=== PATIENT | female | born 1950 | race Caucasian/White ===

== ENCOUNTER → 2016-06-06 | Outpatient (CLI) | payer OTHER ==
[~2016-06-06] MED LIST: ACT30 PO; ALPR-411 PO; ATEN-171 PO; GEMF600T3 PO; GLC500 PO; GLCSR10 PO; SERT-234 PO
--- NOTE | 2016-06-06 15:36 | MAMMOGRAPHY REPORT ---
BILATERAL DIGITAL SCREENING MAMMOGRAM TOMOSYNTHESIS WITH CAD: 06/06/2016 CLINICAL HISTORY: Routine screening. Patient has no complaints. TECHNIQUE: Breast tomosynthesis in addition to standard 2D mammography was performed. Current study was also evaluated with a Computer Aided Detection (CAD) system. COMPARISON: Comparison is made to exams dated: 11/22/2014 mammogram, 03/16/2012 mammogram, 05/24/2013 mammogram, 03/11/2011 mammogram, and 03/05/2010 mammogram - [facility]. BREAST COMPOSITION: There are scattered areas of fibroglandular density in both breasts. FINDINGS: No suspicious masses, calcifications, or areas of architectural distortion are noted in e ither breast. There has been no significant interval change compared to prior exams. IMPRESSION: ACR BI-RADS CATEGORY 1: NEGATIVE There is no mammographic evidence of malignancy. A 1 year screening mammogram is recommended. The p atient will receive written notification of the results. Approximately 10% of breast cancers are not detected with mammography. A negative mammographic repor t should not delay biopsy if a clinically suggestive mass is present. Serena Tomas M.D. /:06/06/2016 13:39:36 [employer] Teacher: Danny JAMA(Sanjana)([place]), [facility] letter sent: Normal 1/2 BI-RADS Code: ACR BI-RADS Category 1: Negative
== END | disposition home or self-care (01) ==
LOC: C.MAMM 09:03
PROVIDERS: ATTEND Family Medicine
DX: Z12.31 Encounter for screening mammogram for malignant neoplasm of breast (principal)

== ENCOUNTER 2025-03-08 20:01 | Inpatient (IN) ==
[2025-03-08 20:35] LABS: Hematocrit (blood only) 28.3 % (37.0-47.0); Hemoglobin 9.6 g/dl (12.0-16.0); Immature Granulocytes # (auto) 0.08 K/uL (0.01-0.20); Immature Granulocytes % (auto) 0.7 %; Mean Corpuscular Hemoglobin 32.7 pg (25.0-34.0); Mean Corpuscular Volume 96.3 fL (80.0-100.0); Platelet Count 233 K/uL (130-400); RDW Standard Deviation 53.1 fL (36.4-46.3); Red Blood Count 2.94 M/uL (4.20-5.40); White Blood Count 11.77 K/ul (4.8-10.8)
[2025-03-08] MEDS: SODIUM CHLORIDE 0.9% 1,000 ML IV SCH (20:54)
[2025-03-08 21:01] LABS: Alanine Aminotransferase 8.0 U/L (7-52); Albumin Globulin Ratio 1.1 (0.9-2); Albumin Level 3.4 gm/dl (3.4-5.0); Alkaline Phosphatase 64.0 U/L (34-104); Anion Gap 11.0 (3-11); Bilirubin,Total 0.7 mg/dl (0.2-1.0); Blood Urea Nitrogen 30.0 mg/dl (6-23); Calcium 14.9 mg/dl (8.6-10.3); Carbon Dioxide 24.0 mmol/L (21-32); Chloride 103.0 mmol/L (98-107); Creatine Kinase 718.0 U/L (26-192); Creatinine Clr Calc Pharmacy 30.3 ml/min; Globulin 3.1 gm/dl (2.5-4.0); Glucose 183.0 mg/dl (70-99(Fasting)); Lipase 25.0 U/L (11-82); Magnesium 0.6 mg/dl (1.7-2.4); Potassium 4.1 mmol/L (3.5-5.1); Sodium 138.0 mmol/L (136-145); Total Protein 6.5 gm/dl (6.0-8.3)
[2025-03-08 21:05] LABS: INR 1.1 (0.9-1.1); Prothrombin Time 11.7 Seconds (9.0-12.0)
[2025-03-08 21:10] LABS: Thyroid Stimulating Hormone 3.834 uIu/ml (0.300-4.500)
[2025-03-08] MEDS: MAGNESIUM SULFATE / D5W 1 GM/100 ML BAG IV SCH (21:11)
--- NOTE | 2025-03-08 21:33 | CT Scan Report ---
Exam(s): CT HEAD Without Contrast EXAM: CT Head Without Intravenous Contrast CLINICAL HISTORY: Reason for exam: trauma. TECHNIQUE: Axial computed tomography images of the head/brain without intravenous contrast. CTDI is 35.65 mGy and DLP is 624.41 mGy-cm. Automated exposure control was utilized for the study. A dose lowering technique was utilized adhering to the principles of ALARA. COMPARISON: No relevant prior studies available. FINDINGS: Brain: Mild ischemic microangiopathy. Age-appropriate cerebral volume loss. No hemorrhage. Ventricles: Unremarkable. No ventriculomegaly. Bones/joints: Unremarkable. No acute fracture. Soft tissues: Unremarkable. Sinuses: Unremarkable as visualized. No acute sinusitis. Mastoid air cells: Unremarkable as visualized. No mastoid effusion. IMPRESSION: No acute findings in the head/brain. Electronically signed by: Fabien Mckeon MD 03/08/25 21:32 PM
--- NOTE | 2025-03-08 22:43 | CT Scan Report ---
Exam(s): CT CHEST Without Contrast EXAM: CT Chest Without Intravenous Contrast CLINICAL HISTORY: Reason for exam: trauma. TECHNIQUE: Axial computed tomography images of the chest without intravenous contrast. CTDI is 23.21 mGy and DLP is 444 mGy-cm. Automated exposure control was utilized for the study. A dose lowering technique was utilized adhering to the principles of ALARA. COMPARISON: No relevant prior studies available. FINDINGS: Lungs: Mild bibasilar dependent atelectasis. No mass. Pleural space: See below. Heart: Coronary artery calcifications. No cardiomegaly. No significant pericardial effusion. Mediastinum: Right paratracheal mass extending inferiorly into the right hilum and into the mediastinum across the esequiel measuring 6.5 x 7x 10 cm. Trace right and tiny left bilateral pleural effusions. Bones/joints: Unremarkable. No acute fracture. Soft tissues: Unremarkable. Vasculature: See above. Lymph nodes: Unremarkable. No enlarged lymph nodes. IMPRESSION: Right paratracheal mass extending inferiorly into the right hilum and into the mediastinum across the esequiel 6.5 x 10 cm findings are concerning for neoplasm. Recommend dedicated CT or PET scan of the chest for further evaluation. Electronically signed by: Fabien Mckeon MD 03/08/25 22:42 PM
--- NOTE | 2025-03-08 22:54 | CT Scan Report ---
Exam(s): CT ABDOMEN + PELVIS Without Contrast EXAM: CT Abdomen and Pelvis Without Intravenous Contrast CLINICAL HISTORY: Reason for exam: trauma. TECHNIQUE: Axial computed tomography images of the abdomen and pelvis without intravenous contrast. CTDI is 13 mGy and DLP is 901 mGy-cm. Automated exposure control was utilized for the study. A dose lowering technique was utilized adhering to the principles of ALARA. COMPARISON: No relevant prior studies available. FINDINGS: Lung bases: 9 mm right lower lobe pulmonary nodule image 44 series 12. Fleischner Society Guidelines recommend chest CT evaluation. No consolidation. Pleural space: Trace right pleural effusion. Heart: Small pericardial effusion. Cardiomegaly. Aortic and mitral valve calcifications. ABDOMEN: Liver: Unremarkable. Gallbladder and bile ducts: Unremarkable. No calcified stones. No ductal dilation. Pancreas: Unremarkable. No ductal dilation. Spleen: Unremarkable. No splenomegaly. Adrenals: Unremarkable. No mass. Kidneys and ureters: Unremarkable. No obstructing stones. No hydronephrosis. Stomach and bowel: Unremarkable. No obstruction. No mucosal thickening. PELVIS: Appendix: No findings to suggest acute appendicitis. Bladder: Unremarkable. No stones. Reproductive: Unremarkable as visualized. ABDOMEN and PELVIS: Intraperitoneal space: Unremarkable. No free air. No significant fluid collection. Bones/joints: No acute fracture. No dislocation. Soft tissues: Unremarkable. Vasculature: Unremarkable. No abdominal aortic aneurysm. Lymph nodes: Unremarkable. No enlarged lymph nodes. IMPRESSION: 1. Small pericardial effusion. 2. Trace right pleural effusion. 3. 9 mm right lower lobe pulmonary nodule. Dedicated chest CT recommended for further evaluation. Electronically signed by: Fabien Mckeon MD 03/08/25 22:53 PM
--- NOTE | 2025-03-08 22:57 | CT Scan Report ---
Exam(s): CT C SPINE EXAM: CT Cervical Spine Without Intravenous Contrast CLINICAL HISTORY: Reason for exam: trauma. TECHNIQUE: Axial computed tomography images of the cervical spine without intravenous contrast. Automated exposure control was utilized for the study. A dose lowering technique was utilized adhering to the principles of ALARA. COMPARISON: No relevant prior studies available. FINDINGS: Vertebrae: Unremarkable. No acute fracture. Discs/spinal canal/neural foramina: Multilevel cervical spondylopathy resulting in varying degrees of canal and foraminal stenosis. No acute fractures or dislocations. Soft tissues: Unremarkable. Mediastinum: Right-sided paratracheal mass incompletely evaluated on this exam. IMPRESSION: No acute findings in the cervical spine. Electronically signed by: Fabien Mckeon MD 03/08/25 22:56 PM
--- NOTE | 2025-03-08 23:23 | Emergency Department Note ---
Impression & Plan SEB (acute kidney injury), Rhabdomyolysis, Fall, Hypomagnesemia, Hypoxia, Elevated troponin, Mediastinal mass, Hypercalcemia ED Provider Note ED Provider Note NAME: SOCORRO HERNANDEZ AGE:74 SEX: Female : 1950 ARRIVES VIA: EMS INFORMANT: Patient ED PROVIDER(s): Shanae Hill DO CHIEF COMPLAINT: Fall, weakness HPI: This is a 74-year-old female presents emergency department via EMS after concern for a fall earlier today. Patient lives at home with her son. She states around 830 this morning she went to the kitchen to get a drink. She states she dropped her bottle of Gatorade and bent over to pick it up to put it back in the fridge rater. She states when she was trying to stand back up she became off balance and fell backwards. She does not believe she struck her head and states she did not pass out. She states she tried to get up but felt too weak and had pain in her knees. She does note she has had pain in her knees though for several days. She states no recent illness including fevers or chills. No recent change in bowel or bladder function. She feels she has been staying well-hydrated and drinking plenty of water. She denies any change in medications. Patient states she was using her walker when the fall occurred. No use of antiplatelet or anticoagulation medications. PAST MEDICAL HISTORY:See Below PAST SURGICAL HISTORY:See Below FAMILY HISTORY:See Below SOCIAL HISTORY:See Below HOME MEDICATIONS:See Below ALLERGIES:See Below VITALS:See Below PHYSICAL EXAMINATION: GENERAL: alert, well appearing, well nourished, no distress, non-toxic HEAD: nc/at EYE EXAM: normal conjunctiva, PERRL and EOM's grossly intact OROPHARYNX: no exudate, no erythema, lips, buccal mucosa, and tongue normal and mucous membranes are moist NECK: supple, no nuchal rigidity, no adenopathy, non-tender LUNGS: Clear to auscultation. Normal chest wall mechanics, no w/r/r HEART: no murmurs, S1 normal and S2 normal ABDOMEN: abdomen soft, non-tender, normo-active bowel sounds, no masses, no rebound or guarding. BACK: Back is symmetrical on inspection and there is no deformity, no midline tenderness, no CVA tenderness. SKIN: no rashes, petechiae, orbruising UPPER EXTREMITIES: upper extremities are grossly normal. FROM, nml pulses b/l. No evidence of trauma or deformity. LOWER EXTREMITIES: No pitting edema. FROM, nml pulses b/l. No evidence of trauma or deformity. NEURO EXAM: Normal sensorium, cranial nerves II-XII grossly intact, normal speech, no facial droop,nogross weakness of arms, no gross weakness of legs. Gross sensation intact. No ataxia. Vital Signs: reviewed and remarkable Differential Diagnosis: CVA, ICH, dehydration, electrolyte, pneumonia, UTI, viral syndrome, deconditioning, malnutrition, medication ADR, ACS, dysrhythmia, dissection, as well as others were considered MEDICAL DECISION MAKING: This is a 74-year-old female who presents to the emergency department via EMS after being found down by son when he arrived home. Patient reported she had fallen around 8:30 in the morning and was too weak to get up. Patient had a provide history here and is seen to be oriented. She was afebrile and hemodynamically stable. She was noted to be mildly hypoxic but denied any sense of feeling short of breath. She was started on oxygen supplementation at 2 L/min. Labs drawn and sent, IV established, EKG performed at bedside and interpreted by me, she was monitored on telemetry. Patient sent for CT imaging. A [id number] BMP revealed a creatinine of 2 and has patient denied any history of kidney problems, scans were changed to noncontrast as a precaution. Due to concern for evolving rhabdomyolysis given the length of time patient had been lying on the floor following her fall, she was started on IV fluid hydration. Patient noted to have EKG abnormalities however denied any chest pain or difficulty breathing and I suspect this may be related to underlying electrolyte abnormalities. Patient noted to have elevated creatinine, I was eventually able to review labs from earlier this year with assistance from case management which did show some degree of chronic kidney disease. I suspect this is acute on chronic given dehydration and rhabdomyolysis. Patient was noted to have elevation of her CK. She was noted to have significant hypomagnesemia and was started on magnesium repletion. Patient also noted to have hypercalcemia. CT did not reveal any acute traumatic injury however a mediastinal mass was noted. Upon discussing this with the patient and family bedside they state she has no prior history of malignancy. I suspect the hypercalcemia is related to undiagnosed malignancy. Patient noted to have mildly elevated troponin however I suspect this is more likely secondary to SEB and rhabdomyolysis additionally. Repeat EKG without any evolving changes, repeat troponin mildly elevated compared to the first. Patient and family updated several times on results and need for further inpatient evaluation and likely biopsy of the newly discovered mass. Case discussed with the hospitalist team for additional evaluation and management. At this time have low suspicion for any additional occult traumatic injury. Consultation(s): 0008: Discussed with Dr. Mireles, [facility] hospitalist team, for additional evaluation and management. ER Treatment Provided: See below Diagnostics Interpreted By Me: -ECG: Sinus tachycardia at 101, leftward axis, left bundle branch block, ST elevation noted; changes are new compared to December 11, 2022 -Cardiac Monitoring: An order was placed for continuous cardiac monitoring. The monitor shows a rate of 102 with sinus tachycardia rhythm. -Laboratory studies: As stated above and show below. -Imaging studies: ct head: no ich Triage Nursing Note Reviewed Prior/Outside Records Reviewed -PCP note from 02/17/2025 reviewed. Echo from 11/23/2024 reviewed showing LVEF of 55 to 59%, moderate concentric LVH, moderate aortic valve calcification, severe aortic valve stenosis, moderate to severe aortic regurgitation, outpatient labs from 12/06/2024 showed BUNs/creatinine of 28 and 1.6, prior glucose of 178, hemoglobin A1c of 7.7, and magnesium of 1.3 Critical care: Critical care of 56 min performed to assess and manage high likelihood of life-threatening electrolyte abnormalities, involving labs and imaging performed with assessment to evaluate fall and weakness diagnosis with frequent reassessment. This time includes bedside time, treatment discussions with patient/family/consultants, documentation time and excludes procedure time. Past Med/Surg History Problem List (Updated 03/09/25 @ 14:14 by Shanae Hill, DO) Hypercalcemia (Acute) Mediastinal mass (Acute) Acute kidney injury superimposed on CKD Hypercalcemia Elevated troponin (Acute) Hypoxia (Acute) Hypomagnesemia (Acute) Fall (Acute) Rhabdomyolysis (Acute) SEB (acute kidney injury) (Acute) Family History Father Cancer Social History Smoking Status: Never smoker Hx Alcohol Use: No Hx Substance Use: No Preferred Language: Jordanian Home Paraprofessional Required: No Beliefs That Will Affect Care: None Current Living Situation: Family Current Living Situation Comment: lives with son Other Information That Helps Us Care for You: No Feels Safe at Home: Yes Safety Concerns: Feels Safe At This Time Assistive Devices: Glasses, Oxygen - Continuous and Walker Allergies Allergies Allergy/AdvReac Type Severity Reaction Status Date / Time No Known Allergies Allergy Unverified 02/10/10 13:10 Home Meds Home Medications Medication Instructions Recorded Confirmed allopurinol 300 mg tablet mg DAILY 03/09/25 calcium 600 mg (as tab PO BID 03/09/25 carbonate)-vitamin D3 10 mcg (400 unit) tablet (Calcium 600 + D(3)) citalopram 20 mg tablet 20 mg DAILY 03/09/25 03/09/25 clonazepam 0.5 mg tablet 0.5 mg 03/09/25 omeprazole 20 mg capsule,delayed mg BID 03/09/25 release semaglutide 2 mg/dose (8 mg/3 mL) mg subcut WK 03/09/25 subcutaneous pen injector (Ozempic) trazodone 50 mg tablet 50 mg HS PRN Sleep 03/09/25 03/09/25 Results & Data (ED) Vital Signs Vital Signs - 24 hr 03/08/25 20:14 03/08/25 21:00 03/08/25 21:32 Temperature 36.7 C Temperature Source Oral Pulse Rate 97 H 97 H Pulse Rate [Apical] 99 H Pulse Rhythm Regular Pulse Rhythm [Apical] Regular Pulse Strength Normal Pulse Strength [Apical] Normal Respiratory Rate 18 18 Respiratory Effort / Characteristics Non-Labored Non-Labored Spontaneous Respiratory Depth Normal Normal Respiratory Pattern Regular Regular Blood Pressure 138/62 Blood Pressure [Right Arm] 97/55 L Blood Pressure Mean 87 Blood Pressure Mean [Right Arm] 69 Blood Pressure Position Lying Blood Pressure Position [Right Arm] Lying Pulse Oximetry 98 96 Oxygen Delivery Method Nasal Cannula Nasal Cannula Oxygen Flow Rate 2 2 Sepsis Recent Fever Within 48 Hours No Sepsis New/Unexplained Change in Mental Status No Sepsis Action Taken by Nursing No Action Required 03/08/25 22:00 03/08/25 23:00 03/09/25 00:00 Temperature Temperature Source Pulse Rate Pulse Rate [Apical] 96 H 96 H 95 H Pulse Rhythm Pulse Rhythm [Apical] Regular Regular Regular Pulse Strength Pulse Strength [Apical] Normal Normal Normal Respiratory Rate 20 18 20 Respiratory Effort / Characteristics Non-Labored Spontaneous Non-Labored Spontaneous Non-Labored Spontaneous Respiratory Depth Normal Normal Normal Respiratory Pattern Regular Regular Regular Blood Pressure Blood Pressure [Right Arm] 104/53 L 111/53 L 108/51 L Blood Pressure Mean Blood Pressure Mean [Right Arm] 70 72 70 Blood Pressure Position Blood Pressure Position [Right Arm] Lying Lying Lying Pulse Oximetry 95 96 90 Oxygen Delivery Method Nasal Cannula Nasal Cannula Nasal Cannula Oxygen Flow Rate 2 2 2 Sepsis Recent Fever Within 48 Hours Sepsis New/Unexplained Change in Mental Status Sepsis Action Taken by Nursing 03/09/25 01:00 Temperature Temperature Source Pulse Rate Pulse Rate [Apical] 94 H Pulse Rhythm Pulse Rhythm [Apical] Regular Pulse Strength Pulse Strength [Apical] Normal Respiratory Rate 20 Respiratory Effort / Characteristics Non-Labored Spontaneous Respiratory Depth Normal Respiratory Pattern Regular Blood Pressure Blood Pressure [Right Arm] 111/53 L Blood Pressure Mean Blood Pressure Mean [Right Arm] 72 Blood Pressure Position Blood Pressure Position [Right Arm] Lying Pulse Oximetry 90 Oxygen Delivery Method Nasal Cannula Oxygen Flow Rate 4 Sepsis Recent Fever Within 48 Hours Sepsis New/Unexplained Change in Mental Status Sepsis Action Taken by Nursing Laboratory Data 03/09/25 07:51 03/09/25 07:51 Lab Results 03/08/25 03/08/25 03/09/25 Range/Units 20:20 20:26 00:43 WBC 11.77 H (4.8-10.8) K/ul RBC 2.94 L (4.20-5.40) M/uL Hgb 9.6 L 8.6 L (12.0-16.0) g/dl POC Hgb 10.5 L (12.0-16.0) g/dl Hct 28.3 L 26.9 L (37.0-47.0) % POC Hct 31 L (37-47) % MCV 96.3 (80.0-100.0) fL MCH 32.7 (25.0-34.0) pg MCHC 33.9 (32.0-36.0) g/dL RDW Std Deviation 53.1 H (36.4-46.3) fL RDW Coeff of Lupe 15.2 H (11.5-14.5) % Plt Count 233 (130-400) K/uL MPV 12.6 H (9.4-12.4) fL Immature Gran % (Auto) 0.7 % Neut % (Auto) 82.3 % Lymph % (Auto) 8.6 % Titus % (Auto) 8.0 % Eos % (Auto) 0.1 % Baso % (Auto) 0.3 % Reticulocyte % (Auto) 2.28 H (0.50-2.00) % Neut # (Auto) 9.70 H (1.40-6.50) K/uL Lymph # (Auto) 1.01 L (1.20-3.40) K/uL Titus # (Auto) 0.94 H (0.11-0.59) K/uL Eos # (Auto) 0.01 (0.00-0.50) K/uL Baso # (Auto) 0.03 (0.00-0.20) K/uL Reticulocyte # 0.060 (0.020-0.100) 10^6/uL Immature Gran # (Auto) 0.08 (0.01-0.20) K/uL PT 11.7 (9.0-12.0) Seconds INR 1.1 (0.9-1.1) POC Sodium 137 (135-144) mmol/L Sodium 138 (136-145) mmol/L POC Potassium 4.0 (3.3-5.0) mmol/L Potassium 4.1 (3.5-5.1) mmol/L POC Chloride 103 (101-112) mmol/L Chloride 103 (98-107) mmol/L Carbon Dioxide 24 (21-32) mmol/L POC Total CO2 24 (24-31) mmol/L Anion Gap 11 (3-11) POC Anion Gap 15.0 L (16-25) mmol/L POC BUN 27 H (7-18) mg/dl BUN 30 H (6-23) mg/dl Creatinine 1.86 H (0.6-1.2) mg/dl POC Creatinine 2.0 H (0.6-1.3) mg/dl Est Cr Clr Drug Dosing 30.3 ml/min eGFR 28.07 BUN/Creatinine Ratio 16.1 (10-20) Glucose 183 H (70-99(Fasting)) mg/dl POC Glucose (other) 172 H (70-99) mg/dl Calcium 14.9 H* 14.0 H* (8.6-10.3) mg/dl POC Ioniz Calcium Rbe 1.87 H* (1.12-1.32) mmol/l Phosphorus 1.6 L (2.5-4.9) mg/dl Magnesium 0.6 L* (1.7-2.4) mg/dl Iron 18 L (35-150) mcg/dl Transferrin 203 (200-360) mg/dl Ferritin 110.2 (8-388) ng/ml Total Bilirubin 0.7 (0.2-1.0) mg/dl AST 27 (13-39) U/L ALT 8 (7-52) U/L Alkaline Phosphatase 64 (34-104) U/L Total Creatine Kinase 718 H (26-192) U/L Troponin I High Sens 51.6 H* 73.1 H* D (0-14) pg/ml Total Protein 6.5 (6.0-8.3) gm/dl Albumin 3.4 (3.4-5.0) gm/dl Globulin 3.1 (2.5-4.0) gm/dl Albumin/Globulin Ratio 1.1 (0.9-2) Lipase 25 (11-82) U/L Vitamin B12 179 L (180-914) pg/ml Folate > 22.30 (>5.38) ng/ml TSH 3.834 (0.300-4.500) uIu/ml PTH Intact 1.7 L (12.0-88.0) pg/ml Blood Type Antibody Screen 03/09/25 Range/Units 00:49 WBC (4.8-10.8) K/ul RBC (4.20-5.40) M/uL Hgb (12.0-16.0) g/dl POC Hgb (12.0-16.0) g/dl Hct (37.0-47.0) % POC Hct (37-47) % MCV (80.0-100.0) fL MCH (25.0-34.0) pg MCHC (32.0-36.0) g/dL RDW Std Deviation (36.4-46.3) fL RDW Coeff of Lupe (11.5-14.5) % Plt Count (130-400) K/uL MPV (9.4-12.4) fL Immature Gran % (Auto) % Neut % (Auto) % Lymph % (Auto) % Titus % (Auto) % Eos % (Auto) % Baso % (Auto) % Reticulocyte % (Auto) (0.50-2.00) % Neut # (Auto) (1.40-6.50) K/uL Lymph # (Auto) (1.20-3.40) K/uL Titus # (Auto) (0.11-0.59) K/uL Eos # (Auto) (0.00-0.50) K/uL Baso # (Auto) (0.00-0.20) K/uL Reticulocyte # (0.020-0.100) 10^6/uL Immature Gran # (Auto) (0.01-0.20) K/uL PT (9.0-12.0) Seconds INR (0.9-1.1) POC Sodium (135-144) mmol/L Sodium (136-145) mmol/L POC Potassium (3.3-5.0) mmol/L Potassium (3.5-5.1) mmol/L POC Chloride (101-112) mmol/L Chloride (98-107) mmol/L Carbon Dioxide (21-32) mmol/L POC Total CO2 (24-31) mmol/L Anion Gap (3-11) POC Anion Gap (16-25) mmol/L POC BUN (7-18) mg/dl BUN (6-23) mg/dl Creatinine (0.6-1.2) mg/dl POC Creatinine (0.6-1.3) mg/dl Est Cr Clr Drug Dosing ml/min eGFR BUN/Creatinine Ratio (10-20) Glucose (70-99(Fasting)) mg/dl POC Glucose (other) (70-99) mg/dl Calcium (8.6-10.3) mg/dl POC Ioniz Calcium Bre (1.12-1.32) mmol/l Phosphorus (2.5-4.9) mg/dl Magnesium (1.7-2.4) mg/dl Iron (35-150) mcg/dl Transferrin (200-360) mg/dl Ferritin (8-388) ng/ml Total Bilirubin (0.2-1.0) mg/dl AST (13-39) U/L ALT (7-52) U/L Alkaline Phosphatase (34-104) U/L Total Creatine Kinase (26-192) U/L Troponin I High Sens (0-14) pg/ml Total Protein (6.0-8.3) gm/dl Albumin (3.4-5.0) gm/dl Globulin (2.5-4.0) gm/dl Albumin/Globulin Ratio (0.9-2) Lipase (11-82) U/L Vitamin B12 (180-914) pg/ml Folate (>5.38) ng/ml TSH (0.300-4.500) uIu/ml PTH Intact (12.0-88.0) pg/ml Blood Type O Positive Antibody Screen NEGATIVE Administered Medications Atenolol (Atenolol 25 Mg Tablet) 25 mg PO QAM LUCILA Stop: 04/08/25 08:59 Last Admin: 03/09/25 07:49 Dose: 25 mg Documented By: rakesh Calcitonin Montgomery (Calcitonin Montgomery 400 Units/2 Ml) 350 units SQ Q12H LUCILA Stop: 03/10/25 14:01 Last Admin: 03/09/25 03:33 Dose: 350 units Documented By: MARIANELA Citalopram Hydrobromide (Citalopram 20 Mg Tab) 30 mg PO DAILY LUCILA Stop: 04/08/25 08:59 Last Admin: 03/09/25 07:49 Dose: 30 mg Documented By: rakesh Clonazepam (Clonazepam 0.5 Mg Tab) 0.25 mg PO BID LUCILA Stop: 04/08/25 08:59 Last Admin: 03/09/25 08:51 Dose: 0.25 mg Documented By: rakesh Sodium Chloride (Nss) 1,000 mls @ 75 mls/hr IV .[id number] ONE Stop: 03/09/25 17:19 Last Admin: 03/09/25 05:11 Dose: 75 mls/hr Documented By: MRAIANELA Insulin Aspart (Insulin Aspart Per Unit Charge) 0 units SC ACHS LUCILA Stop: 04/08/25 03:00 Last Admin: 03/09/25 08:52 Dose: Not Given Documented By: rakesh Admin: 03/09/25 03:22 Dose: Not Given Documented By: MARIANELA Magnesium Oxide (Magnesium Oxide 400 Mg Tab) 400 mg PO BID LUCILA Stop: 04/08/25 10:34 Last Admin: 03/09/25 11:36 Dose: 400 mg Documented By: rakesh Pantoprazole Sodium (Pantoprazole 40 Mg Tab) 40 mg PO QAM LUCILA Stop: 04/08/25 08:59 Last Admin: 03/09/25 07:50 Dose: 40 mg Documented By: rakesh Discontinued Medications Sodium Chloride (Nss) 1,000 mls @ 125 mls/hr IV .Q8H LUCILA Stop: 03/11/25 20:29 Last Infusion: 03/09/25 00:57 Dose: Infused Documented By: Admin: 03/08/25 20:54 Dose: 125 mls/hr Documented By: ROSEANN Magnesium Sulfate/Dextrose (Magnesium Sulfate / D5w) 1 gm in 100 mls @ 100 mls/hr IV Q1H LUCILA Stop: 03/08/25 23:00 Last Infusion: 03/08/25 23:35 Dose: Infused Documented By: gaurav Admin: 03/08/25 22:13 Dose: 100 mls/hr Documented By: Infusion: 03/08/25 22:11 Dose: Infused Documented By: Admin: 03/08/25 21:11 Dose: 100 mls/hr Documented By: gaurav Sodium Chloride (Nss) 1,000 mls @ 250 mls/hr IV .Q4H ONE Stop: 03/09/25 04:11 Last Infusion: 03/09/25 05:10 Dose: Infused Documented By: Admin: 03/09/25 00:56 Dose: 250 mls/hr Documented By: gaurav Magnesium Sulfate/Dextrose (Magnesium Sulfate / D5w) 1 gm in 100 mls @ 100 mls/hr IV NOW STA Stop: 03/09/25 01:50 Last Infusion: 03/09/25 01:56 Dose: Infused Documented By: Admin: 03/09/25 00:56 Dose: 100 mls/hr Documented By: gaurav Magnesium Sulfate/Dextrose (Magnesium Sulfate / D5w) 1 gm in 100 mls @ 50 mls/hr IV Q2H LUCILA Stop: 03/09/25 07:59 Last Infusion: 03/09/25 10:27 Dose: Infused Documented By: rakesh Admin: 03/09/25 07:48 Dose: 50 mls/hr Documented By: rakesh Infusion: 03/09/25 07:32 Dose: Infused Documented By: mcl Admin: 03/09/25 04:50 Dose: 50 mls/hr Documented By: Infusion: 03/09/25 04:30 Dose: Infused Documented By: Admin: 03/09/25 02:30 Dose: 50 mls/hr Documented By: TLB Imaging Data Radiologist's Impression: Cervical Spine CT 03/08/25 20:21 Exam(s): CT C SPINE EXAM: CT Cervical Spine Without Intravenous Contrast CLINICAL HISTORY: Reason for exam: trauma. TECHNIQUE: Axial computed tomography images of the cervical spine without intravenous contrast. Automated exposure control was utilized for the study. A dose lowering technique was utilized adhering to the principles of ALARA. COMPARISON: No relevant prior studies available. FINDINGS: Vertebrae: Unremarkable. No acute fracture. Discs/spinal canal/neural foramina: Multilevel cervical spondylopathy resulting in varying degrees of canal and foraminal stenosis. No acute fractures or dislocations. Soft tissues: Unremarkable. Mediastinum: Right-sided paratracheal mass incompletely evaluated on this exam. IMPRESSION: No acute findings in the cervical spine. Electronically signed by: Fabien Mckeon MD 03/08/25 22:[address] 03/08/25 20:21 Exam(s): CT HEAD Without Contrast EXAM: CT Head Without Intravenous Contrast CLINICAL HISTORY: Reason for exam: trauma. TECHNIQUE: Axial computed tomography images of the head/brain without intravenous contrast. CTDI is 35.65 mGy and DLP is 624.41 mGy-cm. Automated exposure control was utilized for the study. A dose lowering technique was utilized adhering to the principles of ALARA. COMPARISON: No relevant prior studies available. FINDINGS: Brain: Mild ischemic microangiopathy. Age-appropriate cerebral volume loss. No hemorrhage. Ventricles: Unremarkable. No ventriculomegaly. Bones/joints: Unremarkable. No acute fracture. Soft tissues: Unremarkable. Sinuses: Unremarkable as visualized. No acute sinusitis. Mastoid air cells: Unremarkable as visualized. No mastoid effusion. IMPRESSION: No acute findings in the head/brain. Electronically signed by: Fabien Mckeon MD 03/08/25 21:32 PM Abdomen/Pelvis CT 03/08/25 20:29 Exam(s): CT ABDOMEN + PELVIS Without Contrast EXAM: CT Abdomen and Pelvis Without Intravenous Contrast CLINICAL HISTORY: Reason for exam: trauma. TECHNIQUE: Axial computed tomography images of the abdomen and pelvis without intravenous contrast. CTDI is 13 mGy and DLP is 901 mGy-cm. Automated exposure control was utilized for the study. A dose lowering technique was utilized adhering to the principles of ALARA. COMPARISON: No relevant prior studies available. FINDINGS: Lung bases: 9 mm right lower lobe pulmonary nodule image 44 series 12. Fleischner Society Guidelines recommend chest CT evaluation. No consolidation. Pleural space: Trace right pleural effusion. Heart: Small pericardial effusion. Cardiomegaly. Aortic and mitral valve calcifications. ABDOMEN: Liver: Unremarkable. Gallbladder and bile ducts: Unremarkable. No calcified stones. No ductal dilation. Pancreas: Unremarkable. No ductal dilation. Spleen: Unremarkable. No splenomegaly. Adrenals: Unremarkable. No mass. Kidneys and ureters: Unremarkable. No obstructing stones. No hydronephrosis. Stomach and bowel: Unremarkable. No obstruction. No mucosal thickening. PELVIS: Appendix: No findings to suggest acute appendicitis. Bladder: Unremarkable. No stones. Reproductive: Unremarkable as visualized. ABDOMEN and PELVIS: Intraperitoneal space: Unremarkable. No free air. No significant fluid collection. Bones/joints: No acute fracture. No dislocation. Soft tissues: Unremarkable. Vasculature: Unremarkable. No abdominal aortic aneurysm. Lymph nodes: Unremarkable. No enlarged lymph nodes. IMPRESSION: 1. Small pericardial effusion. 2. Trace right pleural effusion. 3. 9 mm right lower lobe pulmonary nodule. Dedicated chest CT recommended for further evaluation. Electronically signed by: Fabien Mckeon MD 03/08/25 22:[address] 03/08/25 20:29 Exam(s): CT CHEST Without Contrast EXAM: CT Chest Without Intravenous Contrast CLINICAL HISTORY: Reason for exam: trauma. TECHNIQUE: Axial computed tomography images of the chest without intravenous contrast. CTDI is 23.21 mGy and DLP is 444 mGy-cm. Automated exposure control was utilized for the study. A dose lowering technique was utilized adhering to the principles of ALARA. COMPARISON: No relevant prior studies available. FINDINGS: Lungs: Mild bibasilar dependent atelectasis. No mass. Pleural space: See below. Heart: Coronary artery calcifications. No cardiomegaly. No significant pericardial effusion. Mediastinum: Right paratracheal mass extending inferiorly into the right hilum and into the mediastinum across the esequiel measuring 6.5 x 7x 10 cm. Trace right and tiny left bilateral pleural effusions. Bones/joints: Unremarkable. No acute fracture. Soft tissues: Unremarkable. Vasculature: See above. Lymph nodes: Unremarkable. No enlarged lymph nodes. IMPRESSION: Right paratracheal mass extending inferiorly into the right hilum and into the mediastinum across the esequiel 6.5 x 10 cm findings are concerning for neoplasm. Recommend dedicated CT or PET scan of the chest for further evaluation. Electronically signed by: Fabien Mckeon MD 03/08/25 22:42 PM Discharge Plan Visit Data Chief Complaint: Fall Stated Complaint: INJURY ALERT, FALL, HYPOTHERMIC ED Provider: Shanae Hill Discharge Problem: SEB (acute kidney injury), Rhabdomyolysis, Fall, Hypomagnesemia, Hypoxia, Elevated troponin, Mediastinal mass, Hypercalcemia Patient Disposition: Admitted As Inpatient Condition: Fair Discharge Instructions Interventions: ED Discharge Assessment Last Done: 03/09/25 01:52
[2025-03-09] MEDS: SODIUM CHLORIDE 0.9% 1,000 ML IV ONE ×2 (00:56→05:11)
[2025-03-09] MEDS: MAGNESIUM SULFATE / D5W 1 GM/100 ML BAG IV STA (00:56)
--- NOTE | 2025-03-09 01:04 | History & Physical Report ---
Date of Service March 09, 2025 Assessment & Plan (1) Hypercalcemia: Plan: Assessment and plan below following discussion of case with ED provider and reviewing patient history/pertinent normal/abnormal diagnostic test results. 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 Acute on chronic anemia, hemoglobin drop from baseline anxiety/mood disorder, at baseline Admit to med/tele Monitor for serum calcium and CPK response to gentle IV hydration given valvular heart disease Calcitonin if no improvement Hypercalcemia workup Hold calcium supplement Nephrology consult re: hypercalcemia Outpatient CT surgery consult re: mediastinal mass Baseline UA, hold home diuretic until creatinine back to baseline Follow troponin, TTE for progression Hold statin until CPK within normal limits Anemia workup, transfuse PRBC if hemoglobin less than 7 and or for symptomatic anemia ISS BG goal 110-140, carb count coverage PT OT eval once medically stable DVT prophylaxis. SCDs DNR Patient request for daughter to be given updates regarding care. Ms. Denise Hutchison, contact #[phone]. Text document was generated using [employer] voice recognition software. It may contain grammatical or spelling errors. Kindly contact undersigned for clarification of any documentation item in question. History of Present Illness Chief Complaint: Fall Primary Care Provider: Laurel Caraballo DO History obtained from patient and records. Medical history significant for valvular heart disease (severe , moderate to severe AR/mild MR/TR), hypertension, hyperlipidemia, DM2 on oral medications, memory impairment as per records, chronic tremors, CRI (baseline creatinine 1.4- 1.6), chronic anemia (baseline hemoglobin of 10), PMR/gout, anxiety/mood disorder. Patient not feeling well the last 2 days. Patient lost her balance at home while picking up a bottle of Gatorade causing her to fall backwards. No head trauma, LOC. Denies chest pain, SOB. Denies abdominal pain. Poor appetite. Patient had trouble getting up. EMS called to patient's home by patient's son. Lowest SBP of 90s documented at the ER. Medical History as above Surgical History : BTL, rectovaginal fistula repair, tonsillectomy Family History : Colon cancer Personal/Social history : Non-smoker, no EtOH intake, homemaker in her younger years Allergies Allergy/AdvReac Type Severity Reaction Status Date / Time No Known Allergies Allergy Unverified 02/10/10 13:10 Home Medications Medication Instructions Recorded Confirmed Type Atenolol/Chlorthalidone (Tenoretic 1 tab PO DAILY ##0 02/09/10 History 50 Mg/25 Mg) Metformin HCL (Glucophage *) 1,000 mg PO BIDM ##0 02/09/10 History Pioglitazone (Actos *) 30 mg PO DAILY ##0 02/09/10 History allopurinol 300 mg tablet mg DAILY 03/09/25 History aspirin 81 mg tablet 81 mg PO DAILY 03/09/25 03/09/25 History atenolol 50 mg-chlorthalidone 25 0.5 tab 03/09/25 History mg tablet atorvastatin 40 mg tablet 40 mg DAILY 03/09/25 03/09/25 History calcium 600 mg (as tab PO BID 03/09/25 History carbonate)-vitamin D3 10 mcg (400 unit) tablet (Calcium 600 + D(3)) citalopram 20 mg tablet 20 mg DAILY 03/09/25 03/09/25 History clonazepam 0.5 mg tablet 0.5 mg 03/09/25 History dicyclomine 10 mg capsule mg QID PRN Abdominal Discomfort 03/09/25 History lisinopril 10 mg tablet mg DAILY 03/09/25 History magnesium chloride 64 mg 64 mg PO DAILY 03/09/25 03/09/25 History tablet,extended release metformin 500 mg tablet,extended mg PO BID 03/09/25 History release 24 hr omeprazole 20 mg capsule,delayed mg BID 03/09/25 History release semaglutide 2 mg/dose (8 mg/3 mL) mg subcut WK 03/09/25 History subcutaneous pen injector (Ozempic) trazodone 50 mg tablet 50 mg HS PRN Sleep 03/09/25 03/09/25 History Past Med/Surg History Problem List (Updated 03/09/25 @ 05:39 by Kuldeep Peralta MD) Hypercalcemia Elevated troponin (Acute) Hypoxia (Acute) Hypomagnesemia (Acute) Fall (Acute) Rhabdomyolysis (Acute) SEB (acute kidney injury) (Acute) Social History Smoking Status: Never smoker Hx Alcohol Use: No Hx Substance Use: No Preferred Language: Italian Lead Android Developer Required: No Beliefs That Will Affect Care: None Current Living Situation: Family Current Living Situation Comment: lives with son Other Information That Helps Us Care for You: No Feels Safe at Home: Yes Safety Concerns: Feels Safe At This Time Assistive Devices: Glasses, Oxygen - Continuous and Walker Review of Systems Review of Systems: As per HPI, all other systems reviewed and negative Physical Exam Physical Exam: GENERAL: Coherent, slightly hard of hearing, no respiratory distress SKIN: Pallor, warm HEENT: Pale palpebral conjunctivae, no ptosis, dry buccal mucosa NECK : Supple, no tenderness CHEST : CTA, no tenderness HEART : Tachycardic, systolic murmur ABDOMEN: Some distention, nontender EXTREMITIES : Bruises over lower extremities, no LE swelling/tenderness, palpable pulses, no other conspicuous deformities noted NEUROLOGIC : Coherent, no facial asymmetry, intention tremors noted, gait and stance not assessed Results & Data Results & Data Vital Signs (Past 12 Hours) Vital Signs Temp Pulse Pulse Resp BP BP Pulse Ox 03/09/25 01:00 94 H 20 111/53 L 90 03/09/25 00:00 95 H 20 108/51 L 90 03/08/25 23:00 96 H 18 111/53 L 96 03/08/25 22:00 96 H 20 104/53 L 95 03/08/25 21:32 97 H 03/08/25 21:00 99 H 18 97/55 L 96 03/08/25 20:14 36.7 C 97 H 18 138/62 98 O2 Del Method O2 Flow Rate 03/09/25 01:00 Nasal Cannula 4 03/09/25 00:00 Nasal Cannula 2 03/08/25 23:00 Nasal Cannula 2 03/08/25 22:00 Nasal Cannula 2 03/08/25 21:32 03/08/25 21:00 Nasal Cannula 2 03/08/25 20:14 Nasal Cannula 2 Laboratory Results Laboratory Results WBC 11.77 K/ul (4.8-10.8) H 03/08/25 20:20 RBC 2.94 M/uL (4.20-5.40) L 03/08/25 20:20 Hgb 9.6 g/dl (12.0-16.0) L 03/08/25 20:20 POC Hgb 10.5 g/dl (12.0-16.0) L 03/08/25 20:26 Hct 28.3 % (37.0-47.0) L 03/08/25 20:20 POC Hct 31 % (37-47) L 03/08/25 20:26 MCV 96.3 fL (80.0-100.0) 03/08/25 20:20 MCH 32.7 pg (25.0-34.0) 03/08/25 20:20 MCHC 33.9 g/dL (32.0-36.0) 03/08/25 20:20 RDW Std Deviation 53.1 fL (36.4-46.3) H 03/08/25 20:20 RDW Coeff of Lupe 15.2 % (11.5-14.5) H 03/08/25 20:20 Plt Count 233 K/uL (130-400) 03/08/25 20:20 MPV 12.6 fL (9.4-12.4) H 03/08/25 20:20 Immature Gran % (Auto) 0.7 % 03/08/25 20:20 Neut % (Auto) 82.3 % 03/08/25 20:20 Lymph % (Auto) 8.6 % 03/08/25 20:20 [place] % (Auto) 8.0 % 03/08/25 20:20 Eos % (Auto) 0.1 % 03/08/25 20:20 Baso % (Auto) 0.3 % 03/08/25 20:20 Neut # (Auto) 9.70 K/uL (1.40-6.50) H 03/08/25 20:20 Lymph # (Auto) 1.01 K/uL (1.20-3.40) L 03/08/25 20:20 [place] # (Auto) 0.94 K/uL (0.11-0.59) H 03/08/25 20:20 Eos # (Auto) 0.01 K/uL (0.00-0.50) 03/08/25 20:20 Baso # (Auto) 0.03 K/uL (0.00-0.20) 03/08/25 20:20 Immature Gran # (Auto) 0.08 K/uL (0.01-0.20) 03/08/25 20:20 PT 11.7 Seconds (9.0-12.0) 03/08/25 20:20 INR 1.1 (0.9-1.1) 03/08/25 20:20 POC Sodium 137 mmol/L (135-144) 03/08/25 20: Sodium 138 mmol/L (136-145) 03/08/25 20:20 POC Potassium 4.0 mmol/L (3.3-5.0) 03/08/25 20:26 Potassium 4.1 mmol/L (3.5-5.1) 03/08/25 20:20 POC Chloride 103 mmol/L (101-112) 03/08/25 20: Chloride 103 mmol/L (98-107) 03/08/25 20:20 Carbon Dioxide 24 mmol/L (21-32) 03/08/25 20:20 POC Total CO2 24 mmol/L (24-31) 03/08/25 20:26 Anion Gap 11 (3-11) 03/08/25 20:20 POC Anion Gap 15.0 mmol/L (16-25) L 03/08/25 20:26 POC BUN 27 mg/dl (7-18) H 03/08/25 20: BUN 30 mg/dl (6-23) H 03/08/25 20:20 Creatinine 1.86 mg/dl (0.6-1.2) H 03/08/25 20:20 POC Creatinine 2.0 mg/dl (0.6-1.3) H 03/08/25 20:26 Est Cr Clr Drug Dosing 30.3 ml/min 03/08/25 20:20 eGFR 28.07 03/08/25 20:20 BUN/Creatinine Ratio 16.1 (10-20) 03/08/25 20:20 Glucose 183 mg/dl (70-99(Fasting)) H 03/08/25 20:20 POC Glucose (other) 172 mg/dl (70-99) H 03/08/25 20:26 Calcium 14.9 mg/dl (8.6-10.3) H* 03/08/25 20:20 POC Ioniz Calcium Bre 1.87 mmol/l (1.12-1.32) H* 03/08/25 20:26 Phosphorus 1.6 mg/dl (2.5-4.9) L 03/08/25 20:20 Magnesium 0.6 mg/dl (1.7-2.4) L* 03/08/25 20:20 Total Bilirubin 0.7 mg/dl (0.2-1.0) 03/08/25 20:20 AST 27 U/L (13-39) 03/08/25 20:20 ALT 8 U/L (7-52) 03/08/25 20:20 Alkaline Phosphatase 64 U/L (34-104) 03/08/25 20:20 Total Creatine Kinase 718 U/L (26-192) H 03/08/25 20:20 Troponin I High Sens 51.6 pg/ml (0-14) H* 03/08/25 20:20 Total Protein 6.5 gm/dl (6.0-8.3) 03/08/25 20:20 Albumin 3.4 gm/dl (3.4-5.0) 03/08/25 20:20 Globulin 3.1 gm/dl (2.5-4.0) 03/08/25 20:20 Albumin/Globulin Ratio 1.1 (0.9-2) 03/08/25 20:20 Lipase 25 U/L (11-82) 03/08/25 20:20 TSH 3.834 uIu/ml (0.300-4.500) 03/08/25 20:[address] 03/08/25 20:21 Exam(s): CT C SPINE EXAM: CT Cervical Spine Without Intravenous Contrast CLINICAL HISTORY: Reason for exam: trauma. TECHNIQUE: Axial computed tomography images of the cervical spine without intravenous contrast. Automated exposure control was utilized for the study. A dose lowering technique was utilized adhering to the principles of ALARA. COMPARISON: No relevant prior studies available. FINDINGS: Vertebrae: Unremarkable. No acute fracture. Discs/spinal canal/neural foramina: Multilevel cervical spondylopathy resulting in varying degrees of canal and foraminal stenosis. No acute fractures or dislocations. Soft tissues: Unremarkable. Mediastinum: Right-sided paratracheal mass incompletely evaluated on this exam. IMPRESSION: No acute findings in the cervical spine. Electronically signed by: Fabien Mckeon MD 03/08/25 22:[address] 03/08/25 20:21 Exam(s): CT HEAD Without Contrast EXAM: CT Head Without Intravenous Contrast CLINICAL HISTORY: Reason for exam: trauma. TECHNIQUE: Axial computed tomography images of the head/brain without intravenous contrast. CTDI is 35.65 mGy and DLP is 624.41 mGy-cm. Automated exposure control was utilized for the study. A dose lowering technique was utilized adhering to the principles of ALARA. COMPARISON: No relevant prior studies available. FINDINGS: Brain: Mild ischemic microangiopathy. Age-appropriate cerebral volume loss. No hemorrhage. Ventricles: Unremarkable. No ventriculomegaly. Bones/joints: Unremarkable. No acute fracture. Soft tissues: Unremarkable. Sinuses: Unremarkable as visualized. No acute sinusitis. Mastoid air cells: Unremarkable as visualized. No mastoid effusion. IMPRESSION: No acute findings in the head/brain. Electronically signed by: Fabien Mckeon MD 03/08/25 21:32 PM Abdomen/Pelvis CT 03/08/25 20:29 Exam(s): CT ABDOMEN + PELVIS Without Contrast EXAM: CT Abdomen and Pelvis Without Intravenous Contrast CLINICAL HISTORY: Reason for exam: trauma. TECHNIQUE: Axial computed tomography images of the abdomen and pelvis without intravenous contrast. CTDI is 13 mGy and DLP is 901 mGy-cm. Automated exposure control was utilized for the study. A dose lowering technique was utilized adhering to the principles of ALARA. COMPARISON: No relevant prior studies available. FINDINGS: Lung bases: 9 mm right lower lobe pulmonary nodule image 44 series 12. Fleischner Society Guidelines recommend chest CT evaluation. No consolidation. Pleural space: Trace right pleural effusion. Heart: Small pericardial effusion. Cardiomegaly. Aortic and mitral valve calcifications. ABDOMEN: Liver: Unremarkable. Gallbladder and bile ducts: Unremarkable. No calcified stones. No ductal dilation. Pancreas: Unremarkable. No ductal dilation. Spleen: Unremarkable. No splenomegaly. Adrenals: Unremarkable. No mass. Kidneys and ureters: Unremarkable. No obstructing stones. No hydronephrosis. Stomach and bowel: Unremarkable. No obstruction. No mucosal thickening. PELVIS: Appendix: No findings to suggest acute appendicitis. Bladder: Unremarkable. No stones. Reproductive: Unremarkable as visualized. ABDOMEN and PELVIS: Intraperitoneal space: Unremarkable. No free air. No significant fluid collection. Bones/joints: No acute fracture. No dislocation. Soft tissues: Unremarkable. Vasculature: Unremarkable. No abdominal aortic aneurysm. Lymph nodes: Unremarkable. No enlarged lymph nodes. IMPRESSION: 1. Small pericardial effusion. 2. Trace right pleural effusion. 3. 9 mm right lower lobe pulmonary nodule. Dedicated chest CT recommended for further evaluation. Electronically signed by: Fabien Mckeon MD 03/08/25 22:[address] 03/08/25 20:29 Exam(s): CT CHEST Without Contrast EXAM: CT Chest Without Intravenous Contrast CLINICAL HISTORY: Reason for exam: trauma. TECHNIQUE: Axial computed tomography images of the chest without intravenous contrast. CTDI is 23.21 mGy and DLP is 444 mGy-cm. Automated exposure control was utilized for the study. A dose lowering technique was utilized adhering to the principles of ALARA. COMPARISON: No relevant prior studies available. FINDINGS: Lungs: Mild bibasilar dependent atelectasis. No mass. Pleural space: See below. Heart: Coronary artery calcifications. No cardiomegaly. No significant pericardial effusion. Mediastinum: Right paratracheal mass extending inferiorly into the right hilum and into the mediastinum across the esequiel measuring 6.5 x 7x 10 cm. Trace right and tiny left bilateral pleural effusions. Bones/joints: Unremarkable. No acute fracture. Soft tissues: Unremarkable. Vasculature: See above. Lymph nodes: Unremarkable. No enlarged lymph nodes. IMPRESSION: Right paratracheal mass extending inferiorly into the right hilum and into the mediastinum across the esequiel 6.5 x 10 cm findings are concerning for neoplasm. Recommend dedicated CT or PET scan of the chest for further evaluation. Electronically signed by: Fabien Mckeon MD 03/08/25 22:42 PM Diagnostic Findings EKG as per my interpretation :EKG as per my interpretation rate 95, NSR, LAD, LAFB, LBBB
[2025-03-09 01:06] LABS: Hematocrit (blood only) 26.9 % (37.0-47.0); Hemoglobin 8.6 g/dl (12.0-16.0); Reticulocytes # 0.060 10^6/uL (0.020-0.100)
[2025-03-09 01:25] LABS: Calcium 14.0 mg/dl (8.6-10.3); Iron 18.0 mcg/dl (35-150); Transferrin 203.0 mg/dl (200-360)
[2025-03-09 01:48] LABS: Folate (Folic Acid),Ser orPlas > 22.30 ng/ml (>5.38)
[2025-03-09 01:49] LABS: Vitamin B12 179 pg/ml (180-914)
[2025-03-09 01:50] LABS: Ferritin 110.2 ng/ml (8-388)
[2025-03-09] MEDS: MAGNESIUM SULFATE / D5W 1 GM/100 ML BAG IV SCH (02:30)
[2025-03-09] MEDS ORDERED: GLUCOSE 40% GEL 15 GM TUBE PO PRN (03:01)
[2025-03-09] MEDS ORDERED: DEXTROSE 50% 50 ML SYRINGE IV PRN (03:01)
[2025-03-09] MEDS ORDERED: GLUCAGON FOR INJ 1 MG VIAL SQ PRN (03:01)
[2025-03-09] MEDS ORDERED: CARBOHYDRATES FOR HYPOGLYCEMIA PO PRN (03:01)
[2025-03-09] MEDS ORDERED: GLUCOSE 10 TAB/TUBE PO PRN (03:01)
[2025-03-09] MEDS: INSULIN ASPART PER UNIT CHARGE SC SCH (03:22)
[2025-03-09] MEDS ORDERED: ACETAMINOPHEN 325 MG TAB PO PRN (03:31)
[2025-03-09] MEDS ORDERED: PROMETHAZINE 6.25 MG/50.25 ML BAG IV PRN (03:31)
[2025-03-09] MEDS: CALCITONIN SALMON 400 UNITS/2 ML SQ SCH (03:33)
[2025-03-09] MEDS: CITALOPRAM 20 MG TAB PO SCH (07:49)
[2025-03-09] MEDS: ATENOLOL 25 MG TABLET PO SCH (07:49)
--- NOTE | 2025-03-09 08:08 | Nephrology Consultation ---
Date of Consultation March 09, 2025 Assessment & Plan (1) Hypercalcemia: improving hypercalcemia but still severe; w/ suppressed PTH and low phos and mediastinal mass, presume hyperCa of malignancy; therefore likely to rebound w/ stopping saline (also need to be cautious w/ saline d/t respiratory /cardiac status) > so will proceed w/ zometa and continue calcitonin; continue saline for now as tolerated 25 OHD levels are pending > if low could help explain low phos as could poor po intake ideally would check 1,25 hydroxy D levels here given concern for possible lymphoma but this is a sendout study here, result not likely to post in time to contribute to her care; would also not order myeloma panel yet unless other w/u unreveialing -agree w/ stopping chlorthalidone and ca suppls which can contribute to high Ca -continue saline at 75 mL hourly for now but if 02 needs increase further would stop -already on calcitonin 350 units SQ q12h s/p one dose so far; limited dosing to 4 total -stat zoledronate 4 mg IV ordered x 1 >> will take a few days to kick in >started phos supplements > neutra phos 1 tab qid >repeat mag, phos, bmp twice daily >>order in for 1600 Care coordinated w/ Dr Vallecillo via TTExt re zometa, po supplements, f/u labs; we arein agreemtn. (2) Hypomagnesemia: receiving IV mag this am for level 0.6 last evening; has had 5 gm total? if this am level was drawn while that mag was running >started daily mag b/c IV will be quite short acting/short impact >> AVOID calcium rich slow mag >suggest recheck mag 2 -3 hrs after infusion complete (3) Acute kidney injury superimposed on CKD: presenting creatinine 03/08 was 1.9; down to 1.6 this am. Stage 1 nonoliguric. has been having CKD progression for past year after years of clinical stability >> baseline has been 1.2-1.3 x years; then 1.4 late 2023, 1.6 mid 2024 (4) Mediastinal mass: [address] >> f/u imaging recommended History of Present Illness Reason for Consultation: hypercalcemia Requesting Physician: Dr Peralta Attending Physician: Tha Vallecillo, History of Present Illness 74 y/o F whom I'm asked to see for hypercalcemia was admitted overnight for same after presenting with rhabdomyolysis after a fall. PMH includes valvular heart disease (severe , moderate to severe AR/mild MR/TR), hypertension, DM2 on oral medications, PMR/gout, chronic tremor, memory impairment, anxiety/mood disorder. Also w/ longstanding CKD 3A baseline creatinine 1.2-1.3 x years but then in 04/2024 creat 1.4 and in 11/2024 1.6 w/ mag 1.3. She had been feeling poorly for 2 days prior to admission and fell backwards after picking up a Gatorade bottle then had difficulty getting up. No head trauma or LOC. Her presenting calcium was 14.9 with serum albumin 3.4 and magnesium 0.6; phos 1.6 at 2030 last evening; repeat bmp is pending. Takes chlorthalidone and calcium supplements at home. she has had 1.25 L NS and remains on NS at 75 ml hourly. This AM she had a 10 second pause and is being set up for transfer to [facility] [place]. patient seems pleasantly confused this AM > she denies musculoskeletal or abdominal pain. Denies constipation. She cannot really tell me why she drinks Gatorade but does endorse poor appetite recently and thinks she may have lost weight in the previous year. Denies fevers or chills. Denies nausea vomiting changes in urine output dysuria or gross hematuria. Allergies Allergy/AdvReac Type Severity Reaction Status Date / Time No Known Allergies Allergy Unverified 02/10/10 13:10 Home Medications Medication Instructions Recorded Confirmed Type Atenolol/Chlorthalidone (Tenoretic 1 tab PO DAILY ##0 02/09/10 History 50 Mg/25 Mg) Metformin HCL (Glucophage *) 1,000 mg PO BIDM ##0 02/09/10 History Pioglitazone (Actos *) 30 mg PO DAILY ##0 02/09/10 History allopurinol 300 mg tablet mg DAILY 03/09/25 History aspirin 81 mg tablet 81 mg PO DAILY 03/09/25 03/09/25 History atenolol 50 mg-chlorthalidone 25 0.5 tab 03/09/25 History mg tablet atorvastatin 40 mg tablet 40 mg DAILY 03/09/25 03/09/25 History calcium 600 mg (as tab PO BID 03/09/25 History carbonate)-vitamin D3 10 mcg (400 unit) tablet (Calcium 600 + D(3)) citalopram 20 mg tablet 20 mg DAILY 03/09/25 03/09/25 History clonazepam 0.5 mg tablet 0.5 mg 03/09/25 History dicyclomine 10 mg capsule mg QID PRN Abdominal Discomfort 03/09/25 History lisinopril 10 mg tablet mg DAILY 03/09/25 History magnesium chloride 64 mg 64 mg PO DAILY 03/09/25 03/09/25 History tablet,extended release metformin 500 mg tablet,extended mg PO BID 03/09/25 History release 24 hr omeprazole 20 mg capsule,delayed mg BID 03/09/25 History release semaglutide 2 mg/dose (8 mg/3 mL) mg subcut WK 03/09/25 History subcutaneous pen injector (Ozempic) trazodone 50 mg tablet 50 mg HS PRN Sleep 03/09/25 03/09/25 History Patient History Family History Father Cancer Social History Smoking Status: Never smoker Hx Alcohol Use: No Hx Substance Use: No Preferred Language: Danish [employer] Clinical Research Associate Required: No Beliefs That Will Affect Care: None Current Living Situation: Family Current Living Situation Comment: lives with son Other Information That Helps Us Care for You: No Feels Safe at Home: Yes Safety Concerns: Feels Safe At This Time Assistive Devices: Glasses, Oxygen - Continuous and Walker Review of Systems 2 Review of Systems: All systems reviewed & are unremarkable except as noted in HPI & below and Unobtainable due to cognitive status Physical Exam 2 Constitutional: well developed and well nourished Eyes: EOM intact bilaterally ENMT: Mouth: + dry oral mucous membranes Respiratory: normal respiratory effort Auscultation: + diminished lung sounds Cardiovascular: Rate/Rhythm: regular rate and regular rhythm Heart Sounds: + murmur Extremities: no edema Gastrointestinal (Abdomen): Inspection/Auscultation: normal bowel sounds P ercussion/Palpation: abdomen soft; abdomen nontender Musculoskeletal: Extremities: strength 5/5 throughout Skin: no rashes, warm and dry Neurologic: dobbs, fluent but perseverant speech, marked resting BLUEjust tremor Results & Data Vital Signs (Past 12 Hours) Vital Signs Temp Pulse Pulse Resp BP BP Pulse Ox 03/09/25 03:01 36.8 C 92 H 18 117/54 L 98 03/09/25 03:01 03/09/25 02:30 03/09/25 02:21 91 H 03/09/25 01:52 108 H 20 103/57 L 98 03/09/25 01:38 105 H 03/09/25 01:00 94 H 20 111/53 L 90 03/09/25 00:00 95 H 20 108/51 L 90 03/08/25 23:00 96 H 18 111/53 L 96 03/08/25 22:00 96 H 20 104/53 L 95 03/08/25 21:32 97 H 03/08/25 21:00 99 H 18 97/55 L 96 03/08/25 20:14 36.7 C 97 H 18 138/62 98 Pulse Ox O2 Del Method O2 Del Method O2 Flow Rate O2 Flow Rate 03/09/25 03:01 Nasal Cannula 3 03/09/25 03:01 98 Nasal Cannula 3 03/09/25 02:30 Nasal Cannula 3 03/09/25 02:21 03/09/25 01:52 Nasal Cannula 3 03/09/25 01:38 03/09/25 01:00 Nasal Cannula 4 03/09/25 00:00 Nasal Cannula 2 03/08/25 23:00 Nasal Cannula 2 03/08/25 22:00 Nasal Cannula 2 03/08/25 21:32 03/08/25 21:00 Nasal Cannula 2 03/08/25 20:14 Nasal Cannula 2 Laboratory Results 03/09/25 07:51 03/09/25 07:[address] chest Right paratracheal mass extending inferiorly into the right hilum and into the mediastinum across the esequiel 6.5 x 10 cm findings are concerning for neoplasm. Recommend dedicated CT or PET scan of the chest for further evaluation. CT a/p 1. Small pericardial effusion. 2. Trace right pleural effusion. 3. 9 mm right lower lobe pulmonary nodule. Dedicated chest CT recommended for further evaluation. CT head, C spine w/o acute findings
[2025-03-09 08:17] LABS: Hematocrit (blood only) 26.8 % (37.0-47.0); Hemoglobin 8.5 g/dl (12.0-16.0); Immature Granulocytes # (auto) 0.08 K/uL (0.01-0.20); Immature Granulocytes % (auto) 0.7 %; Mean Corpuscular Hemoglobin 30.6 pg (25.0-34.0); Mean Corpuscular Volume 96.4 fL (80.0-100.0); Platelet Count 222 K/uL (130-400); RDW Standard Deviation 54.4 fL (36.4-46.3); Red Blood Count 2.78 M/uL (4.20-5.40); White Blood Count 11.45 K/ul (4.8-10.8)
[2025-03-09 08:47] LABS: Anion Gap 7.0 (3-11); Blood Urea Nitrogen 26.0 mg/dl (6-23); Calcium 13.0 mg/dl (8.6-10.3); Carbon Dioxide 27.0 mmol/L (21-32); Chloride 105.0 mmol/L (98-107); Creatine Kinase 569.0 U/L (26-192); Creatinine Clr Calc Pharmacy 34.0 ml/min; Glucose 118.0 mg/dl (70-99(Fasting)); Magnesium 2.1 mg/dl (1.7-2.4); Potassium 3.7 mmol/L (3.5-5.1); Sodium 139.0 mmol/L (136-145)
[2025-03-09] MEDS: clonazePAM 0.5 MG TAB PO SCH (08:51)
[2025-03-09] MEDS ORDERED: CITALOPRAM 20 MG TAB PO SCH (09:00)
[2025-03-09] MEDS ORDERED: ZOLEDRONIC ACID 5 MG in EMPTY BAG 1 ML IV ONE (09:58)
[2025-03-09] MEDS ORDERED: ZOLEDRONIC ACID 3 MG in SODIUM CHLORIDE 0.9% 100 ML IV ONE (11:00)
[2025-03-09 11:28] VITALS: BP 117/55; RESP 18; TEMP 97.5; O2SAT 94
[2025-03-09] MEDS: MAGNESIUM OXIDE 400 MG TAB PO SCH (11:36)
--- NOTE | 2025-03-09 11:52 | Discharge Summary ---
Discharge Summary Date of Service March 09, 2025 Principal Dx & Hospital Course #1 = Principal Diagnosis (1) Mediastinal mass: Ms Lizama is a pleasant 74F with PMH severe , HTN, NIDDM, PMR, gout, chronic tremors, mild cognitive impairment, anxiety, CKD3 who was admitted for a fall yesterday. Denies head trauma or LOC. She was found to have severe lab abnormalities with calcium 14.9, Mg 0.6, PHos 1.6, Cr 1.8, CK 718, HS trop 60. CT also showed a large incidental paratrachael mass. Calcium improved to 13.0 this AM with IVF and bisophosphonates. PTH is low. Nephrology was consulted. Etiology of hypercalcemia likely secondary to previously undiagnosed malignancy. She had mild rhabdo and CK downtrending with IVF. She had a 10 second sinus pause today on telemetry. Otherwise she is in NSR. Mild trop elevation is non specific likely secondary to SEB on CKD3. She has no chest pain or s/s ACS. She is requiring 3L NC. Unclear etiology to her hypoxia, CT chest did not show PNA. Pulm was consulted for biopsy of new lung mass but pulm recommended having thoracic surgery available due to size/location of mass. Pulm recommended transfer. [facility]. She will be accepted under Dr Vaughn. Author had multiple discussions with patient and daughters on phone and at bedside. all agree with transfer for higher level of care. Vitals stable on day of transfer. She is on 3L NC with 94%. (2) Acute kidney injury superimposed on CKD: (3) Hypercalcemia: (4) Elevated troponin: (5) Hypoxia: (6) Hypomagnesemia: (7) Fall: (8) Rhabdomyolysis: Notes For Next Care Provider Medication Changes From Visit Hold all of her home meds for now due to SEB/ rhabdo. These will likely be able to be resumed upon discharge from OSH Admission HPI Per Admitting Provider History obtained from patient and records. Medical history significant for valvular heart disease (severe , moderate to severe AR/mild MR/TR), hypertension, hyperlipidemia, DM2 on oral medications, memory impairment as per records, chronic tremors, CRI (baseline creatinine 1.4- 1.6), chronic anemia (baseline hemoglobin of 10), PMR/gout, anxiety/mood disorder. Patient not feeling well the last 2 days. Patient lost her balance at home while picking up a bottle of Gatorade causing her to fall backwards. No head trauma, LOC. Denies chest pain, SOB. Denies abdominal pain. Poor appetite. Patient had trouble getting up. EMS called to patient's home by patient's son. Lowest SBP of 90s documented at the ER. Medical History as above Surgical History : BTL, rectovaginal fistula repair, tonsillectomy Family History : Colon cancer Personal/Social history : Non-smoker, no EtOH intake, homemaker in her younger years Discharge Exam Vitals and labs reviewed General: Well appearing, NAD HEENT: EOMI, PERRLA Neck: Supple Cardiac: RRR no rubs gallops or murmurs Lungs: CTA no rhonchi wheezing or rales Abd: S NT ND BS positive : Deffered MSK: Full ROM. No obvious deformities Ext: No Edema cyanosis Skin: Warm, Dry Neuro: AO to person place and time but not situation. tremors Psych: Normal Mood Updated Medication List Medication Instructions Recorded Confirmed Type Atenolol/Chlorthalidone (Tenoretic 1 tab PO DAILY ##0 02/09/10 History 50 Mg/25 Mg) Metformin HCL (Glucophage *) 1,000 mg PO BIDM ##0 02/09/10 History Pioglitazone (Actos *) 30 mg PO DAILY ##0 02/09/10 History allopurinol 300 mg tablet mg DAILY 03/09/25 History aspirin 81 mg tablet 81 mg PO DAILY 03/09/25 03/09/25 History atenolol 50 mg-chlorthalidone 25 0.5 tab 03/09/25 History mg tablet atorvastatin 40 mg tablet 40 mg DAILY 03/09/25 03/09/25 History calcium 600 mg (as tab PO BID 03/09/25 History carbonate)-vitamin D3 10 mcg (400 unit) tablet (Calcium 600 + D(3)) citalopram 20 mg tablet 20 mg DAILY 03/09/25 03/09/25 History clonazepam 0.5 mg tablet 0.5 mg 03/09/25 History dicyclomine 10 mg capsule mg QID PRN Abdominal Discomfort 03/09/25 History lisinopril 10 mg tablet mg DAILY 03/09/25 History magnesium chloride 64 mg 64 mg PO DAILY 03/09/25 03/09/25 History tablet,extended release metformin 500 mg tablet,extended mg PO BID 03/09/25 History release 24 hr omeprazole 20 mg capsule,delayed mg BID 03/09/25 History release semaglutide 2 mg/dose (8 mg/3 mL) mg subcut WK 03/09/25 History subcutaneous pen injector (Ozempic) trazodone 50 mg tablet 50 mg HS PRN Sleep 03/09/25 03/09/25 History Hospital Stay Data Consultations 03/09/25 00:09 ED Decision to Admit Stat 03/09/25 03:31 Consult Nephrology Routine 03/09/25 07:44 Consult Pulmonology Routine Diagnostic Imagining Performed 03/08/25 20:21 CT cervical spine wo con Stat CT head/brain wo con Stat 03/08/25 20:29 CT abd pelvis wo con Stat CT chest diagnostic wo con Stat Pending Results Patient Have Any Pending Studies at Discharge: No Discharge Instructions Given to Patient (Per Discharging Provider) After you are discharged from [facility], please follow up with oncology and nephrology Total Time Total Time Spent Total Time Spent (In Minutes): 80
[2025-03-09 12:21] LABS: Appearance Urine Clear (Clear); Glucose Urine UA Negative (Negative)
[2025-03-09] MEDS ORDERED: POT PHOSPHATE MONOBASIC W/ SOD TAB PO SCH (13:00)
--- NOTE | 2025-03-09 15:43 | Electrocardiogram Report ---
Test Reason : Blood Pressure : */* mmHG Vent. Rate : 101 BPM Atrial Rate : 101 BPM P-R Int : 188 ms QRS Dur : 166 ms QT Int : 388 ms P-R-T Axes : 70 -34 107 degrees QTcB Int : 503 ms Sinus tachycardia Left axis deviation Left bundle branch block Abnormal ECG No previous ECGs available Confirmed by Alfa Ramires ([id number]) on 03/09/2025 3:42:47 PM Referred By: REFERRED SELF Confirmed By: Alfa Ramires
--- NOTE | 2025-03-09 15:44 | Electrocardiogram Report ---
Test Reason : Blood Pressure : */* mmHG Vent. Rate : 95 BPM Atrial Rate : 95 BPM P-R Int : 194 ms QRS Dur : 164 ms QT Int : 400 ms P-R-T Axes : 75 -37 113 degrees QTcB Int : 502 ms Normal sinus rhythm Left axis deviation Left bundle branch block Abnormal ECG When compared with ECG of 08-Mar-2025 20:09, (unconfirmed) No significant change was found Confirmed by Alfa Ramires ([id number]) on 03/09/2025 3:44:29 PM Referred By: REFERRED SELF Confirmed By: Alfa Ramires
[2025-03-09 19:20] VITALS: PULSE 95
== END 2025-03-09 13:30 | disposition short-term general hospital (02) | DRG 181 ==
LOC: ED 20:01 → 2N 03-09 01:36

== ENCOUNTER 2025-04-05 13:29 | Inpatient (IN) ==
[2025-04-05] MEDS: SODIUM CHLORIDE 0.9% 500 ML IV ONE ×3 (13:50→19:45)
[2025-04-05] MEDS: MAGNESIUM SULFATE / D5W 1 GM/100 ML BAG IV STA ×2 (13:54→15:01)
--- NOTE | 2025-04-05 13:54 | Emergency Department Note ---
Impression & Plan Atrial fibrillation with rapid ventricular response, SEB (acute kidney injury), Hypercalcemia, Hypomagnesemia, Hypoxia, Elevated troponin, Mediastinal mass ED Provider Note NAME: SOCORRO HERNANDEZ AGE: 74 SEX: F : 1950 ARRIVES VIA: Ambulance INFORMANT: Patient, ED PROVIDER(S): Kirill Min DO CHIEF COMPLAINT: Generalized weakness HPI: The patient is a 74-year-old female who presented to the emergency department for evaluation of generalized weakness. The patient started having symptoms last evening of nausea and vomiting. She denies having any abdominal pain or chest pain. She is noticing no this morning when she tries to walk she gets very short of breath and weak. She denies having any leg swelling or leg pain. She denies having any hematemesis or black stool. The patient called 911 because of the degree of weakness she was experiencing. She was in our facility last month for different complaints. ROS: See above HPI for pertinent positives & negatives. A total of 10 systems reviewed and were otherwise negative. PAST MEDICAL HISTORY: See Below PAST SURGICAL HISTORY: See Below FAMILY HISTORY: See Below SOCIAL HISTORY: See Below HOME MEDICATIONS: See Below ALLERGIES: See Below VITALS: See Below PHYSICAL EXAMINATION: GENERAL: Patient is awake alert in no acute distress patient is resting comfortably and showing no signs of anxiety EYES: The conjunctivae are clear. The pupils are round and reactive. EARS, NOSE, MOUTH AND THROAT: The nose is without any evidence of any deformity. NECK: The neck is nontender and supple. HJR was noted. RESPIRATORY: Diminished breath sounds are noted at both bases. CARDIOVASCULAR: Tachycardic and irregular heart sounds are noted to auscultation. There is no definite murmur. GASTROINTESTINAL: The abdomen is soft. Abdomen is nontender. MUSCULOSKELETAL/EXTREMITIES: There is no evidence of gross deformity full range of motion is noted in the hips and shoulders. SKIN: There is no obvious evidence of any rash. There are no petechiae, pallor or cyanosis noted. NEUROLOGIC: Patient is awake alert and oriented x3. Strength is symmetric. MEDICAL DECISION MAKING: The patient is a 74-year-old female who presented to the emergency department for generalized weakness. The patient was recently diagnosed with a mediastinal mass. She presented to the emergency department today because of weakness. The patient was found to be in atrial fibrillation with RVR. Laboratory studies were obtained which do reveal multiple electrolyte abnormalities. The patient was treated with IV fluids IV antibiotics as well as IV magnesium replacement in the emergency department. She was reevaluated multiple times. Given the patient's ongoing symptoms and comorbidities I discussed her condition with the on-call [facility]. They have agreed to evaluate the patient in the emergency department for further management and disposition. Triage Nursing notes reviewed. Prior medical records reviewed Vital Signs: reviewed and remarkable for tachycardia and hypotension. Differential diagnosis: Infection, dehydration, metabolic abnormality, hypo/hyperglycemia, electrolyte disturbance, anemia, hypoxia, cardiac sources, intracerebral event, toxicologic, neurologic, as well as other pathologies. ER treatment provided: See below Diagnostics interpreted by me: ECG: EKG was obtained in the emergency department. My interpretation is atrial fibrillation at 133 bpm. There were no PVCs noted. A left bundle branch block pattern was noted. This was compared to a tracing from March 09, 2025. Atrial fibrillation has replaced sinus rhythm otherwise no changes were noted. Cardiac Monitoring: An order was placed for continuous cardiac monitoring. The monitor shows a rate of 120 bpm with atrial fibrillation RVR. Laboratory studies: As stated above and show below. Imaging studies: See below. Radiographic imaging was reviewed by myself Consultation(s): I discussed this case with Nereida who is on-call for the [facility]. ED COURSE: Procedures: none Critical Care: I have personally spent greater than 35 minutes of critical care time in the direct management of this patient. This includes bedside care, interpretation of diagnostic studies, and testing, discussion with consultants, patient, and family members, and other required patient management activities. This 35 minutes is in excess of all separately billable procedures. Past Med/Surg History Problem List (Updated 04/05/25 @ 14:51 by Kirill Min DO) Atrial fibrillation with rapid ventricular response (Acute) Hypercalcemia (Acute) Mediastinal mass (Acute) Acute kidney injury superimposed on CKD Hypercalcemia Elevated troponin (Acute) Hypoxia (Acute) Hypomagnesemia (Acute) Fall (Acute) Rhabdomyolysis (Acute) SEB (acute kidney injury) (Acute) Family History Father Cancer Social History Smoking Status: Never smoker Hx Alcohol Use: No Hx Substance Use: No Preferred Language: [place] Techn[employer] Required: No Beliefs That Will Affect Care: None Current Living Situation: Family Current Living Situation Comment: lives with son Feels Safe at Home: Yes Assistive Devices: Glasses, Oxygen - Continuous and Walker Allergies Allergies Allergy/AdvReac Type Severity Reaction Status Date / Time No Known Allergies Allergy Unverified 02/10/10 13:10 Home Meds Home Medications Medication Instructions Recorded Confirmed allopurinol 300 mg tablet mg DAILY 03/09/25 calcium 600 mg (as tab PO BID 03/09/25 carbonate)-vitamin D3 10 mcg (400 unit) tablet (Calcium 600 + D(3)) citalopram 20 mg tablet 20 mg DAILY 03/09/25 03/09/25 clonazepam 0.5 mg tablet 0.5 mg 03/09/25 omeprazole 20 mg capsule,delayed mg BID 03/09/25 release semaglutide 2 mg/dose (8 mg/3 mL) mg subcut WK 03/09/25 subcutaneous pen injector (Ozempic) trazodone 50 mg tablet 50 mg HS PRN Sleep 03/09/25 03/09/25 Results & Data (ED) Vital Signs Vital Signs - 24 hr 04/05/25 13:43 04/05/25 13:48 04/05/25 13:54 Temperature 37 C Temperature Source Oral Pulse Rate 133 H 134 H Respiratory Rate 20 Respiratory Effort / Characteristics Non-Labored Spontaneous Respiratory Depth Normal Respiratory Pattern Regular Blood Pressure 108/62 Blood Pressure Mean 77 Pulse Oximetry 95 89 L Oxygen Delivery Method Room Air Room Air Oxygen Flow Rate Sepsis Recent Fever Within 48 Hours No Sepsis New/Unexplained Change in Mental Status N/A Sepsis Action Taken by Nursing No Action Required Oxygen Flow Rate - Titration 2 Pulse Oximetry Post Tiitration 94 04/05/25 13:57 Temperature Temperature Source Pulse Rate 135 H Respiratory Rate 25 H Respiratory Effort / Characteristics Respiratory Depth Respiratory Pattern Blood Pressure Blood Pressure Mean Pulse Oximetry 95 Oxygen Delivery Method Nasal Cannula Oxygen Flow Rate 2 Sepsis Recent Fever Within 48 Hours Sepsis New/Unexplained Change in Mental Status Sepsis Action Taken by Nursing Oxygen Flow Rate - Titration Pulse Oximetry Post Tiitration Home Medications Current Medication List: was personally reviewed by me Laboratory Data Attestation: I reviewed the patient's lab results. 04/05/25 13:45 04/05/25 13:45 Lab Results 04/05/25 04/05/25 04/05/25 Range/Units 13:45 13:50 14:08 WBC 7.59 (4.8-10.8) K/ul RBC 3.05 L (4.20-5.40) M/uL Hgb 9.7 L (12.0-16.0) g/dL POC Hgb (12.0-16.0) g/dl Hct 29.5 L (37.0-47.0) % POC Hct (37-47) % MCV 96.7 (80.0-100.0) fL MCH 31.8 (25.0-34.0) pg MCHC 32.9 (32.0-36.0) g/dL RDW Std Deviation 59.7 H (36.4-46.3) fL RDW Coeff of Lupe 17.1 H (11.5-14.5) % Plt Count 274 (130-400) K/uL MPV 13.3 H (9.4-12.4) fL Immature Gran % (Auto) 1.1 % Neut % (Auto) 63.6 % Lymph % (Auto) 26.4 % [place] % (Auto) 8.3 % Eos % (Auto) 0.1 % Baso % (Auto) 0.5 % Neut # (Auto) 4.83 (1.40-6.50) K/uL Lymph # (Auto) 2.00 (1.20-3.40) K/uL [place] # (Auto) 0.63 H (0.11-0.59) K/uL Eos # (Auto) 0.01 (0.00-0.50) K/uL Baso # (Auto) 0.04 (0.00-0.20) K/uL Immature Gran # (Auto) 0.08 (0.01-0.20) K/uL Absolute Nucleated RBC 0.02 (0.00-0.12) K/uL Nucleated RBC % (auto) 0.3 % PT 13.3 H (9.0-12.0) Seconds INR 1.3 H (0.9-1.1) APTT 31 (21-31) Seconds PTT Ratio 1.1 VBG pH 7.36 (7.36-7.41) VBG pCO2 32 L (38-50) mmHg VBG pO2 42 mmHg VBG HCO3 18 mmol/L VBG O2 Saturation 66.2 % VBG Base Excess -6.3 mEq/L POC Sodium (135-144) mmol/L Sodium 135 L (136-145) mmol/L POC Potassium (3.3-5.0) mmol/L Potassium 4.9 (3.5-5.1) mmol/L POC Chloride (101-112) mmol/L Chloride 105 (98-107) mmol/L Carbon Dioxide 19 L (21-32) mmol/L POC Total CO2 (24-31) mmol/L Anion Gap 11 (3-11) POC Anion Gap (16-25) mmol/L POC BUN (7-18) mg/dl BUN 41 H (6-23) mg/dl Creatinine 1.89 H (0.6-1.2) mg/dl POC Creatinine (0.6-1.3) mg/dl Est Cr Clr Drug Dosing 26.3 ml/min eGFR 27.54 BUN/Creatinine Ratio 21.7 H (10-20) Glucose 190 H (70-99(Fasting)) mg/dl POC Glucose (other) (70-99) mg/dl Lactate 2.5 H* (0.4-2.0) mmol/L Calcium 11.4 H (8.6-10.3) mg/dl POC Ioniz Calcium Bre (1.12-1.32) mmol/l Magnesium 0.9 L* (1.7-2.4) mg/dl Total Bilirubin 1.3 H (0.2-1.0) mg/dl Direct Bilirubin 0.5 H (0-0.2) mg/dl AST 15 (13-39) U/L ALT 6 L (7-52) U/L Alkaline Phosphatase 78 (34-104) U/L Troponin I High Sens 252.9 H* (0-14) pg/ml Total Protein 7.0 (6.0-8.3) gm/dl Albumin 3.8 (3.4-5.0) gm/dl Procalcitonin 0.83 H (0-0.5) ng/ml 04/05/ Range/Units 14:14 WBC (4.8-10.8) K/ul RBC (4.20-5.40) M/uL Hgb (12.0-16.0) g/dL POC Hgb 8.5 L (12.0-16.0) g/dl Hct (37.0-47.0) % POC Hct 25 L (37-47) % MCV (80.0-100.0) fL MCH (25.0-34.0) pg MCHC (32.0-36.0) g/dL RDW Std Deviation (36.4-46.3) fL RDW Coeff of Lupe (11.5-14.5) % Plt Count (130-400) K/uL MPV (9.4-12.4) fL Immature Gran % (Auto) % Neut % (Auto) % Lymph % (Auto) % [place] % (Auto) % Eos % (Auto) % Baso % (Auto) % Neut # (Auto) (1.40-6.50) K/uL Lymph # (Auto) (1.20-3.40) K/uL [place] # (Auto) (0.11-0.59) K/uL Eos # (Auto) (0.00-0.50) K/uL Baso # (Auto) (0.00-0.20) K/uL Immature Gran # (Auto) (0.01-0.20) K/uL Absolute Nucleated RBC (0.00-0.12) K/uL Nucleated RBC % (auto) % PT (9.0-12.0) Seconds INR (0.9-1.1) APTT (21-31) Seconds PTT Ratio VBG pH (7.36-7.41) VBG pCO2 (38-50) mmHg VBG pO2 mmHg VBG HCO3 mmol/L VBG O2 Saturation % VBG Base Excess mEq/L POC Sodium 136 (135-144) mmol/L Sodium (136-145) mmol/L POC Potassium 5.1 H (3.3-5.0) mmol/L Potassium (3.5-5.1) mmol/L POC Chloride 108 (101-112) mmol/L Chloride (98-107) mmol/L Carbon Dioxide (21-32) mmol/L POC Total CO2 18 L (24-31) mmol/L Anion Gap (3-11) POC Anion Gap 16.0 (16-25) mmol/L POC BUN 40 H (7-18) mg/dl BUN (6-23) mg/dl Creatinine (0.6-1.2) mg/dl POC Creatinine 2.1 H (0.6-1.3) mg/dl Est Cr Clr Drug Dosing ml/min eGFR BUN/Creatinine Ratio (10-20) Glucose (70-99(Fasting)) mg/dl POC Glucose (other) 187 H (70-99) mg/dl Lactate (0.4-2.0) mmol/L Calcium (8.6-10.3) mg/dl POC Ioniz Calcium Bre 1.45 H (1.12-1.32) mmol/l Magnesium (1.7-2.4) mg/dl Total Bilirubin (0.2-1.0) mg/dl Direct Bilirubin (0-0.2) mg/dl AST (13-39) U/L ALT (7-52) U/L Alkaline Phosphatase (34-104) U/L Troponin I High Sens (0-14) pg/ml Total Protein (6.0-8.3) gm/dl Albumin (3.4-5.0) gm/dl Procalcitonin (0-0.5) ng/ml Administered Medications Sodium Chloride (Nss) 500 mls @ 999 mls/hr IV .Q31M ONE Stop: 04/05/25 15:14 Last Admin: 04/05/25 14:45 Dose: 999 mls/hr Documented By: ponce Magnesium Sulfate/Dextrose (Magnesium Sulfate / D5w) 1 gm in 100 mls @ 100 mls/hr IV NOW STA Stop: 04/05/25 15:44 Last Admin: 04/05/25 15:01 Dose: 100 mls/hr Documented By: ponce Discontinued Medications Sodium Chloride (Nss) 500 mls @ 999 mls/hr IV .Q31M ONE Stop: 04/05/25 14:13 Last Infusion: 04/05/25 14:20 Dose: Infused Documented By: ponce Admin: 04/05/25 13:50 Dose: 999 mls/hr Documented By: ponce Magnesium Sulfate/Dextrose (Magnesium Sulfate / D5w) 1 gm in 100 mls @ 100 mls/hr IV NOW STA Stop: 04/05/25 14:50 Last Infusion: 04/05/25 14:58 Dose: Infused Documented By: ponce Admin: 04/05/25 13:54 Dose: 100 mls/hr Documented By: LAURA Ceftriaxone Sodium (Rocephin) 2,000 mg in 50 mls @ 100 mls/hr IV NOW STA Stop: 04/05/25 14:49 Last Infusion: 04/05/25 14:58 Dose: Infused Documented By: ponce Admin: 04/05/25 14:23 Dose: 100 mls/hr Documented By: LAURA Imaging Data Attestation: I personally reviewed and interpreted this imaging study as follows: My Impression: 1 view chest x-ray was obtained in the emergency department. My interpretation is mediastinal mass is again noted, possible infiltrate at the right base, final report below. Radiologist's Impression: Chest X-Ray 04/05/25 13:41 XR chest 1V portable CLINICAL HISTORY: Sepsis COMPARISON STUDY: 03/08/2025 FINDINGS: Large right upper mediastinal mass is grossly stable. Pulmonary nodules are better seen on the prior exam. There is stable mild cardiomegaly without pulmonary vascular congestion. There is interval patchy opacity medial right lung base. No other consolidation or pleural effusion seen. No pneumothorax. IMPRESSION: Possible early pneumonia medial right lung base. ACT 112: Negative or not required by law. Electronically signed by: Jaime James M.D. 04/05/2025 1:56 PM Discharge Plan Visit Data Chief Complaint: Nausea Stated Complaint: Weakness ED Provider: Kirill Min Discharge Problem: Atrial fibrillation with rapid ventricular response, SEB (acute kidney injury), Hypercalcemia, Hypomagnesemia, Hypoxia, Elevated troponin, Mediastinal mass Patient Disposition: Being Evaluated by Hospitalist Condition: Fair Forms Stand Alone Forms: My [facility] Prescriptions Prescriptions: No Action allopurinol 300 mg tablet DAILY citalopram 20 mg tablet 20 mg DAILY Rx Instructions: 1.5 tablets clonazepam 0.5 mg tablet 0.5 mg Rx Instructions: 1 tablet in AM, 2 tablets in evening omeprazole 20 mg capsule,delayed release(DR/EC) BID Ozempic 2 mg/dose (8 mg/3 mL) pen injector SUBCUT WK trazodone 50 mg tablet 50 mg HS PRN (Reason: Sleep) Rx Instructions: 1-2 tablets as needed at bedtime calcium carbonate-vitamin D3 [Calcium 600 + D(3)] 600 mg-10 mcg (400 unit) Tablet PO BID Referrals Referrals: Laurel Caraballo DO [Primary Care Provider] -
--- NOTE | 2025-04-05 13:58 | XRay Report ---
XR chest 1V portable CLINICAL HISTORY: Sepsis COMPARISON STUDY: 03/08/2025 FINDINGS: Large right upper mediastinal mass is grossly stable. Pulmonary nodules are better seen on the prior exam. There is stable mild cardiomegaly without pulmonary vascular congestion. There is int erval patchy opacity medial right lung base. No other consolidation or pleural effusion seen. No pneu mothorax. IMPRESSION: Possible early pneumonia medial right lung base. ACT 112: Negative or not required by law. Electronically signed by: Jaime James M.D. 04/05/2025 1:56 PM
[2025-04-05 14:20] LABS: Base Excess VBG -6.3 mEq/L; HCO3 VBG 18 mmol/L; Oxygen Saturation VBG 66.2 %; PCO2 VBG 32 mmHg (38-50); PO2 VBG 42 mmHg; pH VBG 7.36 (7.36-7.41)
[2025-04-05] MEDS: cefTRIAXone SODIUM 2,000 MG/50 ML BAG IV STA (14:23)
[2025-04-05 14:37] LABS: Anion Gap 11.0 (3-11); Blood Urea Nitrogen 41.0 mg/dl (6-23); Calcium 11.4 mg/dl (8.6-10.3); Carbon Dioxide 19.0 mmol/L (21-32); Chloride 105.0 mmol/L (98-107); Creatinine Clr Calc Pharmacy 26.3 ml/min; Glucose 190.0 mg/dl (70-99(Fasting)); Potassium 4.9 mmol/L (3.5-5.1); Sodium 135.0 mmol/L (136-145)
[2025-04-05 14:39] LABS: Hematocrit (blood only) 29.5 % (37.0-47.0); Hemoglobin 9.7 g/dL (12.0-16.0); Immature Granulocytes # (auto) 0.08 K/uL (0.01-0.20); Immature Granulocytes % (auto) 1.1 %; Mean Corpuscular Hemoglobin 31.8 pg (25.0-34.0); Mean Corpuscular Volume 96.7 fL (80.0-100.0); Platelet Count 274 K/uL (130-400); RDW Standard Deviation 59.7 fL (36.4-46.3); Red Blood Count 3.05 M/uL (4.20-5.40); White Blood Count 7.59 K/ul (4.8-10.8)
[2025-04-05 14:46] LABS: Alanine Aminotransferase 6.0 U/L (7-52); Albumin Level 3.8 gm/dl (3.4-5.0); Alkaline Phosphatase 78.0 U/L (34-104); Bilirubin,Total 1.3 mg/dl (0.2-1.0); Magnesium 0.9 mg/dl (1.7-2.4); Total Protein 7.0 gm/dl (6.0-8.3)
[2025-04-05 15:05] LABS: INR 1.3 (0.9-1.1); Partial Thromboplastin Time 31 Seconds (21-31); Prothrombin Time 13.3 Seconds (9.0-12.0)
--- NOTE | 2025-04-05 15:23 | History & Physical Report ---
Date of Service April 05, 2025 Assessment & Plan (1) Atrial fibrillation with rapid ventricular response: (2) Mediastinal mass: (3) Acute kidney injury superimposed on CKD: (4) Hypercalcemia: (5) Hypomagnesemia: Plan: Patient is 74-year-old female with PMH LBBB, HTN, HLD, DM II, CKD III, hypomagnesemia, newly found paratracheal mass, hypercalcemia, and others listed below presented to ER with c/o generalized weakness. #Atrial Fibrillation RVR Today in ER Afebrile, P: 133, R: 20, BP 108/62, 95% on room air and noted 89% on room air BP dropped to 82/67 with HR 128 Found to be in A-fib RVR Remained in afib RVR in ER with soft BP's EKG Atrial fibrillation, rate 133, LBBB per my interpretation Troponin: 252-->244 03/08/25 TSH: 3.8 03/10/25 Echo: EF: 55-59%, no LV wall motion abnormalities, severe mixed aortic valve disease with significantly elevated transaortic velocitites, likely combination of high flow due to aortic regurgitation as well leaflet restriction from aortic stenosis. moderate mitral regurgitation present In ER given total 1L NSS Pt denies SOB, CP, palpitations Discussed with cardiology. Plan to do limited Echo. Plans to start amiodarone. Will hold home metoprolol succinate and start metoprolol tartrate as blood pressures allow CBC, CMP, magnesium labs in am #Peritracheal Mass S/P bronchoscopic evaluation and EBUS on 03/13/2025: Mediastinal adenopathy. Paratracheal adenopathy. The airway examination was normal. Endobronchial ultrasound was performed. Transbronchial needle aspiration was performed in 3 stations as outlined above. Right paratracheal lymph node FNA --> nondiagnostic, few large atypical cells Right hilar FNA --> suspicious for malignancy, rare atypical large cells, suspicious high-grade/large cell lymphoma. Recommend large biopsy for confirmation and/or subclassification. Initially pt denied further biopsy but couple days ago decided wants biopsy and reports trying to get scheduled at [facility] Had PET-CT scan on 03/22/2025 Following with oncology, Dr Perez Will need further biopsy to determine further treatment plans #Hypercalcemia Last admission with Ca: 14.9 treated with IVF, zoledronic acid Today Ca: 11.4 (03/20/2025: Calcium: 10.1) Hold home calcium supplements NSS Monitor BMP #Hypomagnesemia K: 4.9. Magnesium: 0.9 In ER given 2gm magnesium sulfate IV Per outpatient review magnesium: 0.9 on 04/03/25. Daughter states patient taking magnesium chloride 2 tabs daily and was unaware to start magnesium oxide daily. Replace and monitor #Pneumonia No leukocytosis. Lactate: 2.5. Procalcitonin: 0.8. Influenza, RSV, SARS-CoV-2 negative Blood cultures pending CXR:Large right upper mediastinal mass is grossly stable. Pulmonary nodules are better seen on the prior exam. There is stable mild cardiomegaly without pulmonary vascular congestion. There is interval patchy opacity medial right lung base. No other consolidation or pleural effusion seen. No pneumothorax In ER given total 1L NSS, Rocephin Trend lactate Gentle NSS Rocephin, doxycycline CBC in am #Hypoxic respiratory failure At [facility] pt underwent a nocturnal oxygen study that showed that she needed 2 L at night, and an ambulatory oxygen showed that she did not need any oxygen with movement Today in ER hypoxic and improved with 2L via NC Supplemental oxygen as needed and continue HS oxygen #SEB on CKD III Recent SEB in 02/2025 BUN: 41, Cr: 1.89. (03/20/25: BUN: 29, creatinine: 1.5) Gentle IVF Monitor renal functions If worsening consider nephrology consult #HTN Hypotensive in ER Holding home metoprolol succinate as above #HLD Continue atorvastatin #DM II A1c: 6.7 on 03/20/25 Hold home Ozempic Novolog sliding scale per protocol #Chronic anemia Hgb: 9.7. (03/20/25: H/H: 9.9/31) Monitor H&H DVT Prophylaxis On Eliquis Admit PCU Full Code as per discussion with pt and pt's daughter at bedside Follows with Dr Caraballo for routine care Pt was seen and care coordinated with Dr Vallejo. See addendum I spent a total of 79 minutes reviewing notes, outpatient records, labs, medication, coordinating, documenting and providing care for this patient excluding time spent in the performance of separately billed services and excluding time spent by another provider/QHP. History of Present Illness Chief Complaint: Weakness Primary Care Provider: Laurel Caraballo DO Patient is 74-year-old female with PMH LBBB, HTN, HLD, DM II, CKD III, hypomagnesemia, newly found paratracheal mass, hypercalcemia, and others listed below presented to ER with c/o generalized weakness. Extensive inpatient and outpatient chart review as well as discussion with patient's daughter at [facility]. Hospital admission at [facility] 03/09/25 for newly found paratracheal mass and hypercalcemia and treated with IVF, zoledronic acid and transferred to [facility] for biopsy by thoracic surgery. 03/09/25-03/15/25 [facility] admission. Her calcium improved with fluids. Endocrinology consulted with no further recommendations. New onset atrial fibrillation during hospitalization initially treated with IV Lopressor and placed on metoprolol 150mg daily, Eliquis 5mg BID. Patient underwent a nocturnal oxygen study that showed that she needed 2 L at night, and an ambulatory oxygen showed that she did not need any oxygen with movement. On 03/13, the patient underwent endobronchial ultrasound with biopsy. Cytology showing high-grade lymphoma. Her aspirin, atenolol, chlorthalidone, trazodone was discontinued. She was discharged on 2L oxygen HS Per patient's daughter patient with decreased appetite. She is on Ozempic but hasn't taken past couple of weeks but did take 3 days ago. Reports worse anorexia past 3 days. with decreased oral intake. PCP decreased dose of Ozempic to 1mg on 04/03/25 per outpatient chart review. Patient reports feels generally weak and is not moving around much at home secondary to weakness. She uses walker at baseline. Denies falls. Denies chest pain, SOB, palpitations, dizziness, syncope. She reports took her medications this morning including metoprolol and Eliquis. Daughter states initially patient refused going back to [facility] for thoracic surgery to attempt to obtain another biopsy but a few days ago decided she wanted that and are trying to get is scheduled outpatient now. Patient states has been having cough but unable to further elaborate. Denies hemoptysis. States one episode vomiting "small amount" last night. States today no further vomiting and did eat yogurt this morning. Denies fever/chills, diaphoresis, diarrhea, ZAVALA, dizziness, syncope, rhinorrhea, abdominal pain, extremity edema, rashes, urinary symptoms. Allergies Allergy/AdvReac Type Severity Reaction Status Date / Time No Known Allergies Allergy Unverified 02/10/10 13:10 Home Medications Medication Instructions Recorded Confirmed Type allopurinol 300 mg tablet 300 mg PO DAILY 03/09/25 04/05/25 History calcium 600 mg (as 1 tab PO BID 03/09/25 04/05/25 History carbonate)-vitamin D3 10 mcg (400 unit) tablet (Calcium 600 + D(3)) clonazepam 0.5 mg tablet 0.5 mg PO UD 03/09/25 04/05/25 History omeprazole 20 mg capsule,delayed 40 mg PO DAILY 03/09/25 04/05/25 History release apixaban 5 mg tablet (Eliquis) 5 mg PO BID 04/05/25 04/05/25 History atorvastatin 40 mg tablet 40 mg PO DAILY 04/05/25 04/05/25 History dicyclomine 10 mg capsule 10 mg PO QID PRN Abdominal Pain 04/05/25 04/05/25 History magnesium chloride 64 mg 128 mg PO DAILY 04/05/25 04/05/25 History (magnesium chloride) tablet,delayed release metformin 500 mg tablet,extended 500 mg PO BID 04/05/25 04/05/25 History release 24 hr metoprolol succinate 50 mg 150 mg PO DAILY 04/05/25 04/05/25 History tablet,extended release 24 hr semaglutide 1 mg/dose (4 mg/3 mL) 1 mg subcut WK 04/05/25 04/05/25 History subcutaneous pen injector (Ozempic) Past Med/Surg History Problem List Atrial fibrillation with rapid ventricular response (Acute) Hypercalcemia (Acute) Mediastinal mass (Acute) Acute kidney injury superimposed on CKD Hypercalcemia Elevated troponin (Acute) Hypoxia (Acute) Hypomagnesemia (Acute) Fall (Acute) Rhabdomyolysis (Acute) SEB (acute kidney injury) (Acute) Family History Father Cancer Social History Smoking Status: Never smoker Hx Alcohol Use: No Hx Substance Use: No Preferred Language: [place] Islander Wedding Florist Required: No Beliefs That Will Affect Care: None Current Living Situation: Family Current Living Situation Comment: lives with son Feels Safe at Home: Yes Assistive Devices: Glasses, Oxygen - Continuous and Walker Review of Systems Review of Systems: All systems reviewed & are unremarkable except as noted in HPI & below Physical Exam Physical Exam: General: +chronic ill appearing, no distress lying supine in bed Head: normocephalic, atraumatic Eyes: pale conjunctiva, anicteric ENT: normal inspection external ears, nose, mucous membranes moist Neck: supple, trachea midline, non-tender Lungs: no respiratory distress, diminished breath sounds CV: irregularly irregular, rate 120, no pretibial edema Abd: normal BS, soft, non-tender Ext: no cyanosis, no calf tenderness Neuro: A&O x 3, no focal deficits noted, normal affect Skin: pale, warm, dry Results & Data Results & Data Vital Signs (Past 12 Hours) Vital Signs Temp Pulse Resp BP Pulse Ox O2 Del Method O2 Flow Rate 04/05/25 15:00 121 H 27 H 97 04/05/25 15:00 95/57 L 04/05/25 15:00 95/57 L 04/05/25 15:00 95/57 L 04/05/25 15:00 95/57 L 04/05/25 15:00 95/57 L 04/05/25 14:51 128 H 27 H 95 04/05/25 14:50 99/60 L 04/05/25 14:50 99/60 L 04/05/25 14:50 99/60 L 04/05/25 14:50 99/60 L 04/05/25 14:50 99/60 L 04/05/25 14:48 120 H 28 H 97 04/05/25 14:42 132 H 30 H 98 04/05/25 14:40 04/05/25 14:40 04/05/25 14:40 04/05/25 14:40 04/05/25 14:40 04/05/25 14:39 125 H 25 H 97 04/05/25 14:30 93/51 L 04/05/25 14:30 93/51 L 04/05/25 14:30 93/51 L 04/05/25 14:30 93/51 L 04/05/25 14:30 93/51 L 04/05/25 14:30 119 H 29 H 95 04/05/25 14:21 142 H 24 95 04/05/25 14:17 88/53 L 04/05/25 14:17 88/53 L 04/05/25 14:17 88/53 L 04/05/25 14:17 88/53 L 04/05/25 14:17 88/53 L 04/05/25 14:16 83/50 L 04/05/25 14:15 85/55 L 04/05/25 14:15 122 H 26 H 96 04/05/25 14:12 126 H 28 H 96 04/05/25 14:03 100/60 04/05/25 14:03 100/60 04/05/25 14:03 100/60 04/05/25 14:03 127 H 25 H 100/60 96 Nasal Cannula 2 04/05/25 14:00 128 H 25 H 82/67 L 95 04/05/25 13:57 135 H 25 H 95 Nasal Cannula 2 04/05/25 13:54 89 L Room Air 04/05/25 13:48 134 H 04/05/25 13:43 37 C 133 H 20 108/62 95 Room Air Laboratory Results Short CBC 04/05/25 Range/Units 13:45 WBC 7.59 (4.8-10.8) K/ul Hgb 9.7 L (12.0-16.0) g/dL Hct 29.5 L (37.0-47.0) % Plt Count 274 (130-400) K/uL BMP 04/05/25 13:45 Sodium 135 L Potassium 4.9 Chloride 105 Carbon Dioxide 19 L BUN 41 H Creatinine 1.89 H Glucose 190 H Calcium 11.4 H Liver Function 04/05/25 Range/Units 13:45 Total Bilirubin 1.3 H (0.2-1.0) mg/dl Direct Bilirubin 0.5 H (0-0.2) mg/dl AST 15 (13-39) U/L ALT 6 L (7-52) U/L Alkaline Phosphatase 78 (34-104) U/L Albumin 3.8 (3.4-5.0) gm/dl Diagnostic Findings Chest X-Ray 04/05/25 13:41 XR chest 1V portable CLINICAL HISTORY: Sepsis COMPARISON STUDY: 03/08/2025 FINDINGS: Large right upper mediastinal mass is grossly stable. Pulmonary nodules are better seen on the prior exam. There is stable mild cardiomegaly without pulmonary vascular congestion. There is interval patchy opacity medial right lung base. No other consolidation or pleural effusion seen. No pneumothorax. IMPRESSION: Possible early pneumonia medial right lung base. ACT 112: Negative or not required by law. Electronically signed by: Jaime James M.D. 04/05/2025 1:56 PM Supervising Physician Co-Signing Physician Notes Attending addendum: The patient was seen and examined in the emergency room in presence of the daughters She was brought in with extreme weakness and tiredness and also shortness of breath with exertion Denies any fever and/or chills, no cough, chest pain or palpitation She has anorexia and also has nausea but no definite vomiting On examination No apparent distress at rest and has been saturating normally on 2 L nasal cannula Blood pressure remains low at systolic 90s and the heart rate remains high around 110 to 130-40 Chestdecreased breath sounds mostly on the right side bilateral crackles HeartS1-S2 irregular with tachycardia Abdomenbenign Extremitiesno edema CNSalert, awake and oriented. Generally very weak and lethargic but no focal neurodeficit Her admission labs, EKG and imaging studies reviewed Significant findings include A-fib with RVR and low blood pressure while she has been on metoprolol succinate 100 mg daily She also had significant right paratracheal mass with hypercalcemia under investigation to have definitive diagnosis before giving any treatment for possible lymphoma and she is under care at [place] for this She noted to have possible right lower lobe pneumonia as well Cardiology was consulted and she was started on intravenous amiodarone to control the heart rate and atrial fibrillation She was given intravenous ceftriaxone and also doxycycline for possible pneumonia Her electrolytes will be corrected Agree with assessment and plan as outlined above by Yulisa Arroyo PA-C and take the full responsibility of care in the hospital Total time taken to examine the patient, review the labs, discussion about findings and planning management was [address] Nikko Vallejo
[2025-04-05 15:57] LABS: Influenza A virus by PCR Negative (Neg); Influenza B virus by PCR Negative (Neg); SARS CoV2 RNA(COVID-19) Ceph NEGATIVE (Negative)
--- NOTE | 2025-04-05 16:36 | Cardiology Consultation ---
Date of Consultation April 05, 2025 Assessment & Plan (1) Atrial fibrillation with rapid ventricular response: * Systolic blood pressure in the 90s. Atrial fibrillation with rapid ventricular response in the setting of left bundle branch block. Ventricular rates in the 130s on arrival, down to 119 bpm during my assessment. * A focused bedside transthoracic echocardiogram was performed in the emergency department at the time my assessment revealing no pericardial effusion. * Continue Eliquis for stroke prophylaxis. * Change metoprolol succinate to metoprolol tartrate 12.5 mg 4 times daily with holding parameters for heart rate less than 60 and systolic blood pressure less than 90 mmHg. * Start IV amiodarone without bolus, infusion at 1 mg/min x 6 hours and then 0.5 mg/min thereafter. * Amiodarone felt to be best option at present given hypotension. It is noted the patient has conduction system disease with a left bundle branch block and during her previous hospital stay at [facility] she is noted to have a 10- second pause, therefore will need to be cautious with regards to AV judy bloc kers. Amiodarone tends to not lower the blood pressure but will provide heart rate control. TSH and liver function test acceptable for amiodarone use. (2) Hypercalcemia: * Level 11.4 for now, as mentioned, had been 14.9 at time of presentation on 03/08/2025. (3) Mediastinal mass: * Suspected lymphoma . Given signs of daily mediastinal mass, compression effect may be contributing to the development of atrial fibrillation. * Need to optimize her heart rate and blood pressure to allow for planned upcoming biopsy for definitive tissue diagnosis as the treatment can be initiated. (4) Hypomagnesemia: * Magnesium level on presentation and 0.9 mg/dL. She has already received a gram of IV magnesium and oral replacement will be continued. I spent a total of 65 minutes on the date of service in preparation, delivery, and documentation of the care provided to this patient, excluding any time spent in the performance of separately billed services. Bernabe Garcia DO History of Present Illness History of Present Illness Vivian Lizama is a 74 year old female seen in cardiology consultation per the request of Dr Vallejo for the evaluation of atrial fibrillation with rapid ventricular response and hypotension. The patient is seen in the emergency department, [place] A11B. She is accompanied by two daughters. The patient notes generalized fatigue. Denies new or worsening shortness of breath, lightheadedness, dizziness, subjective palpitations or feeling like she is going to pass out. Her recent history dates back to 03/08/2025 when she presented to the emergency department at [facility] after a fall. She was found to have hypercalcemia with a level of 14.9 mg/dL on presentation. Further imaging at that time included a CT of the chest that revealed a 6.5 cm x 7 cm x 10 cm right paratracheal mass extending into the right hilum and into the mediastinum across the esequiel. She was ultimately transferred to [facility] where fine-needle aspiration biopsy revealed abnormal cytology suggestive of B-cell lymphoma. While hospitalized that she developed atrial fibrillation with rapid ventricular response which was a new diagnosis for her. She was treated with metoprolol succinate 150 mg daily and Eliquis was added. Since discharge she has been seen by medical oncology. Repeat biopsy is tentatively planned for definitive tissue diagnosis. Cardiac History: Left bundle branch block- first Recognized on EKG 03/08/2025,this was new compared to previous outpatient tracing dating back to 2022 within the [facility] Severe aortic stenosis, moderate aortic valve regurgitation, Moderate mitral valve regurgitation Allergies Allergy/AdvReac Type Severity Reaction Status Date / Time No Known Allergies Allergy Unverified 02/10/10 13:10 Home Medications Medication Instructions Recorded Confirmed Type allopurinol 300 mg tablet 300 mg PO DAILY 03/09/25 04/05/25 History calcium 600 mg (as 1 tab PO BID 03/09/25 History carbonate)-vitamin D3 10 mcg (400 unit) tablet (Calcium 600 + D(3)) clonazepam 0.5 mg tablet 0.5 mg PO UD 03/09/25 History omeprazole 20 mg capsule,delayed 40 mg PO DAILY 03/09/25 History release apixaban 5 mg tablet (Eliquis) 5 mg PO BID 04/05/25 04/05/25 History atorvastatin 40 mg tablet 40 mg PO DAILY 04/05/25 04/05/25 History dicyclomine 10 mg capsule 10 mg PO QID PRN Abdominal Pain 04/05/25 04/05/25 History magnesium chloride 64 mg 128 mg PO DAILY 04/05/25 04/05/25 History (magnesium chloride) tablet,delayed release metformin 500 mg tablet,extended 500 mg PO BID 04/05/25 04/05/25 History release 24 hr metoprolol succinate 50 mg 150 mg PO DAILY 04/05/25 04/05/25 History tablet,extended release 24 hr semaglutide 1 mg/dose (4 mg/3 mL) 1 mg subcut WK 04/05/25 04/05/25 History subcutaneous pen injector (Ozempic) Patient History Family History Father Cancer Social History Smoking Status: Never smoker Hx Alcohol Use: No Hx Substance Use: No Preferred Language: Kazakh Expansion Joint Finisher Required: No Beliefs That Will Affect Care: None Current Living Situation: Family Current Living Situation Comment: lives with son Feels Safe at Home: Yes Assistive Devices: Glasses, Oxygen - Continuous and Walker Review of Systems Review of Systems: All systems reviewed & are unremarkable except as noted in HPI & below Physical Exam Physical Exam: Temp Pulse Resp BP Pulse Ox O2 Del Method O2 Flow Rate 37 C 110 H 31 H 95/61 L 96 Nasal Cannula 2 04/05/25 13:43 04/05/25 15:30 04/05/25 15:30 04/05/25 15:30 04/05/25 15:30 04/05/25 15:30 04/05/25 15:30 Constitutional: + ill appearing (Chronically ill in appe arance) Eyes: PERRL, conjunctivae normal, anicteric sclerae Neck: trachea midline, no thyromegaly Respiratory: no labored breathing, no cough and not tachypneic Auscultation: + diminished lung sounds (Mildly decreased breath sounds bilaterally at the bases) Cardiovascular: Rate/Rhythm: + tachycardic and + irregularly irregular Heart Sounds: + murmur (2/6 systolic murmur heard best at right sternal border) Vessels: no JVD Extremities: no edema Gastrointestinal (Abdomen): normal bowel sounds, soft, nontender, no hepatosplenomegaly Neurologic: PERRL, EOMI, accommodation nl, no face palsy, no dysarthria Results & Data Vital Signs (Past 12 Hours) Vital Signs Laboratory Results Cardiac Enzymes 04/05/25 Range/Units 13:45 AST 15 (13-39) U/L Troponin I High Sens 252.9 H* (0-14) pg/ml Coagulation 04/05/25 Range/Units 13:45 PT 13.3 H (9.0-12.0) Seconds APTT 31 (21-31) Seconds CBC 04/05/25 Range/Units 13:45 WBC 7.59 (4.8-10.8) K/ul RBC 3.05 L (4.20-5.40) M/uL Hgb 9.7 L (12.0-16.0) g/dL Hct 29.5 L (37.0-47.0) % Plt Count 274 (130-400) K/uL Neut # (Auto) 4.83 (1.40-6.50) K/uL Lymph # (Auto) 2.00 (1.20-3.40) K/uL [place] # (Auto) 0.63 H (0.11-0.59) K/uL Eos # (Auto) 0.01 (0.00-0.50) K/uL Baso # (Auto) 0.04 (0.00-0.20) K/uL Comprehensive Metabolic Panel 04/05/25 Range/Units 13:45 Sodium 135 L (136-145) mmol/L Potassium 4.9 (3.5-5.1) mmol/L Chloride 105 (98-107) mmol/L Carbon Dioxide 19 L (21-32) mmol/L BUN 41 H (6-23) mg/dl Creatinine 1.89 H (0.6-1.2) mg/dl Glucose 190 H (70-99(Fasting)) mg/dl Calcium 11.4 H (8.6-10.3) mg/dl Direct Bilirubin 0.5 H (0-0.2) mg/dl AST 15 (13-39) U/L ALT 6 L (7-52) U/L Alkaline Phosphatase 78 (34-104) U/L Total Protein 7.0 (6.0-8.3) gm/dl Albumin 3.8 (3.4-5.0) gm/dl Intake and Output 04/05/25 04/05/25 04/05/25 06:59 14:59 22:59 Intake Total 650 / 1250 600 / 1250 Balance 650 / 1250 600 / 1250 Intake: IV 650 / 1250 600 / 1250 Magnesium Sulfate / D5w 1 gm In 100 / 200 100 / 200 100 ml @ 100 mls/hr IV NOW STA Rx#:[id number] Sodium Chloride 0.9% 500 ml @ 500 / 1000 500 / 1000 999 mls/hr IV .Q31M ONE Rx#: [id number] SODIUM 2,000 mg In 50 / 50 50 ml @ 100 mls/hr IV NOW STA Rx#:[id number] Other: # Unmeasured Voids 0 Weight 65.4 kg Weight Measurement Method Built in [facility] Patient Weight 04/06/25 06:59 Weight 65.4 kg Diagnostic Findings EKG performed 04/05/2025 at 1341 and interpreted dependently revealed atrial fibrillation 133 bpm, left bundle branch block. - Compared to the previous performed 03/09/2025, atrial fibrillation has replaced sinus rhythm at 95 bpm. The left bundle branch block persists, without QRS complex, QRS duration 150 ms. Summary of transthoracic echocardiogram performed 03/10/2025 at [facility]: The qualitative LV ejection fraction is 55-59% (normal). No LV segmental wall motion abnormalities. The right ventricular systolic function is qualitatively normal. There is severe mixed aortic valve disease with significantly elevated transaort ic velocities, likely a combination of high flow due to aortic regurgitation as well leaflet restriction from aortic stenosis. Peak CW velocity across the aortic valve= 4.8 m/s, mean gradient 58 mmHg. Moderate mitral regurgitation is present. No pericardial effusion noted PG Care Time/CCT Total # of Minutes Spent Total Time Spent with Patient: Total time spent is greater than 50% in coordination of care (as documented) at patient's floor/unit and/or counseling patient: Coding Level of Care Code 14676 IN/OBS CONSULT LVL 4,60M Diagnoses Atrial fibrillation with rapid ventricular response I48.91 Hypercalcemia E83.52 Mediastinal mass J98.59 Hypomagnesemia E83.42
[2025-04-05] MEDS ORDERED: 0.2 MICRON FILTER SET 1 EACH IV ONE (16:42)
--- NOTE | 2025-04-05 17:10 | XCELERA ---
[id number]
[2025-04-05] MEDS: AMIODARONE / D5W 360 MG/200 ML BAG IV ONE (17:21)
[2025-04-05] MEDS: SODIUM CHLORIDE 0.9% 1,000 ML IV SCH (17:52)
[2025-04-05] MEDS ORDERED: DICYCLOMINE HCL 10 MG CAP PO PRN (18:54)
[2025-04-05] MEDS ORDERED: ACETAMINOPHEN 325 MG TAB PO PRN (18:54)
[2025-04-05] MEDS ORDERED: GLUCOSE 40% GEL 15 GM TUBE PO PRN (18:54)
[2025-04-05] MEDS ORDERED: GLUCOSE 10 TAB/TUBE PO PRN (18:54)
[2025-04-05] MEDS ORDERED: GLUCAGON FOR INJ 1 MG VIAL SQ PRN (18:54)
[2025-04-05] MEDS ORDERED: CARBOHYDRATES FOR HYPOGLYCEMIA PO PRN (18:54)
[2025-04-05] MEDS ORDERED: POLYETHYLENE (MIRALAX) 17 GM PACK PO PRN (18:54)
[2025-04-05] MEDS ORDERED: DEXTROSE 50% 50 ML SYRINGE IV PRN (18:54)
--- NOTE | 2025-04-05 19:02 | Electrocardiogram Report ---
Test Reason : Blood Pressure : */* mmHG Vent. Rate : 133 BPM Atrial Rate : * BPM P-R Int : * ms QRS Dur : 150 ms QT Int : 344 ms P-R-T Axes : * -32 142 degrees QTcB Int : 511 ms Atrial fibrillation with rapid ventricular response Left axis deviation Left bundle branch block Abnormal ECG When compared with ECG of 09-Mar-2025 00:42, Atrial fibrillation has replaced Sinus rhythm T wave amplitude has increased in Anterior leads Confirmed by Alfa Ramires ([id number]) on 04/05/2025 7:01:48 PM Referred By: REFERRED SELF Confirmed By: Alfa Ramires
[2025-04-05] MEDS: DOXYCYCLINE HYCLATE 100 MG in DEXTROSE 5% MINI-B 100 ML IV ONE (19:27)
[2025-04-05] MEDS: METOPROLOL TARTRATE 25 MG TAB PO SCH (19:39)
[2025-04-05] MEDS: APIXABAN 5 MG TABLET PO SCH (20:29)
[2025-04-05] MEDS: INSULIN ASPART PER UNIT CHARGE SC SCH (20:37)
[2025-04-05] MEDS: clonazePAM 0.5 MG TAB PO SCH (20:37)
[2025-04-05] MEDS: MAGNESIUM SULFATE / D5W 1 GM/100 ML BAG IV ONE (20:54)
[2025-04-05] MEDS: LACTATED RINGER'S 1,000 ML IV SCH (20:55)
[2025-04-05] MEDS: AMPICILLIN/SULBACTAM SOD 3,000 MG/100 ML BAG IV SCH (22:51)
[2025-04-05] MEDS: AMIODARONE / D5W 360 MG/200 ML BAG IV SCH (22:52)
[2025-04-05] MEDS: MIDODRINE HCL 2.5 MG TAB PO STA (23:14)
[2025-04-06] MEDS: MIDODRINE HCL 2.5 MG TAB PO STA (02:16)
[2025-04-06] MEDS: IPRATROPIUM BROMIDE NEB SOLN 0.02% 0.5MG/2.5ML VIAL INH STA (02:29)
[2025-04-06] MEDS: LEVALBUTEROL 1.25 MG/3 ML NEB NEB STA (02:29)
--- NOTE | 2025-04-06 02:47 | Communication Note ---
Date of Service: April 06, 2025
[2025-04-06 02:49] LABS: Anion Gap 13.0 (3-11); Blood Urea Nitrogen 48.0 mg/dl (6-23); Calcium 9.5 mg/dl (8.6-10.3); Carbon Dioxide 14.0 mmol/L (21-32); Chloride 108.0 mmol/L (98-107); Creatinine Clr Calc Pharmacy 21.4 ml/min; Glucose 223.0 mg/dl (70-99(Fasting)); Potassium 5.8 mmol/L (3.5-5.1); Sodium 135.0 mmol/L (136-145)
[2025-04-06] MEDS ORDERED: STAT IV Infusion **Titration per Protocol STA ×2 (02:50→02:57)
[2025-04-06 03:07] LABS: Alanine Aminotransferase 1812.0 U/L (7-52); Albumin Globulin Ratio 1.0 (0.9-2); Albumin Level 2.9 gm/dl (3.4-5.0); Alkaline Phosphatase 125.0 U/L (34-104); Bilirubin,Total 1.2 mg/dl (0.2-1.0); Globulin 2.9 gm/dl (2.5-4.0); Magnesium 2.0 mg/dl (1.7-2.4); Total Protein 5.8 gm/dl (6.0-8.3)
[2025-04-06 03:12] LABS: Hematocrit (blood only) 25.4 % (37.0-47.0); Hemoglobin 8.1 g/dL (12.0-16.0); Mean Corpuscular Hemoglobin 31.9 pg (25.0-34.0); Mean Corpuscular Volume 100.0 fL (80.0-100.0); Platelet Count 191 K/uL (130-400); RDW Standard Deviation 60.5 fL (36.4-46.3); Red Blood Count 2.54 M/uL (4.20-5.40); White Blood Count 11.65 K/ul (4.8-10.8)
[2025-04-06] MEDS: PHENYLEPHRINE/NSS 25 MG/250 ML BAG IV SCH (03:17)
[2025-04-06 03:35] VITALS: RESP 27
--- NOTE | 2025-04-06 03:35 | Critical Care Consultation ---
Date of Consultation April 06, 2025 Assessment & Plan (1) Atrial fibrillation with rapid ventricular response: (2) Hypercalcemia: (3) Acute kidney injury superimposed on CKD: (4) Hypoxia: (5) Hypomagnesemia: Plan Reason Critically Ill: 74 YOF presents with concern for septic shock in afib with rvr, loaded with amiodarone and initiated on broad spectrum antibiotics- now hypotensive and respiratory insufficiency/hypoxic resp failure now requiring NIPPV and vasopressor support. Neuro - metabolic encephalopathy CAM ICU: Negative - patient awake and alert on arrival but does appear fatigued - no deficits in extremities and without facial droop or visual defects - continue supportive care - If encephalopathy worsens will pursue intubation and obtain CT imaging Cardiac - shock unspecified, depressed EF, afib with RVR - Shock unspecified with multiorgan dysfunction - cardiogenic vs. distributive vs. obstructive - distributive vs. cardiogenic - - distributive source possibly pulmonary - UA sent on arrival to ICU- however has already received abx - She did have a limited ECHO in the ER by cardiology with small pericardial effusion without tamponade physiology reported- bedside POCUS without large or moderate effusion- RA enlarged and IVC full - EF 30%- this is decreased from prior reported ECHO in March 04 (55-59% with aortic valve disease regurg with stenosis) - She has been on her Eliquis so doubt PE as well as she responds well to oxygen therapy - Lactate is downtrending following resuscitation - however volume discontinued in setting of dyspnea and hypoxia - Vasopressors initiated in form of NEOsynepherine (favored at this time to reduce risk of returning to afib RVR) - Afib with RVR- amiodarone bolus and drip initiated on admission - She is currently in NSR - Patient's LFTs markedly increased- very low risk that amiodarone was this acute, however discussed with pharmacy and may be applicable with some IV formulations - will hold amiodarone at this time - Her magnesium was also very depleted when she arrived- this has been replaced and mag is now >2.0 so this will likely also assist with NSR and rate controll - Continue her Eliquis - IF vasopressors continue to increase will add inotropic agent and diurese - Elevated HsCTNI likely demand in setting of afib with RVR and shock- ECG with chronic LBBB- downtrended Respiratory - hypoxic respiratory failure, abnormal chest xray/concern for p neumonia, peritracheal mass - on my interpretation: haziness RLL and now with blunting of costophrenic angles bilaterally RT>LT which is new compared to CXR on 04/05/25 @ 1347 - IVF discontinued - consider diuresis if she does not respond to NIPPV - can't exclude infectious cause with RLL haziness present prior- however currently likely related to volume overload - In regards to her peritracheal mass- no information in our system- - copied from her H&P is the following- S/P bronchoscopic evaluation and EBUS on 03/13/2025: Mediastinal adenopathy. Paratracheal adenopathy. The airway examination was normal. Endobronchial ultrasound was performed. Transbronchial needle aspiration was performed in 3 stations Right paratracheal lymph node FNA --> nondiagnostic, few large atypical cells Right hilar FNA --> suspicious for malignancy, rare atypical large cells, suspicious high-grade/large cell lymphoma. Recommend large biopsy for confirmation and/or subclassification. Initially pt denied further biopsy but couple days ago decided wants biopsy and reports [place] [facility] [place] on 03[place]22/2025 - As above follow up biopsy not done as well as she has not received any chemo/radiation therapies GI - Elevated LFTS, Elevated alkphos - Patient arrived with normal LFTs- now with significant elevation of her AST/ALT- Alk phos- bili stable - DDX: RETIREMENT vs. organ dysfunction from shock vs. medication toxicity vs. volume overload vs. thrombus vs. infectious - encephalopathy, no previous history of cirrhosis known or mets known, INR 1.6, - without jaundice -Patient was hypotensive but appears for short course - however she is with newly depressed EF and evidence of hypervolemia on recent CXR - vasopressors and NIPPV initiated - will send Tylenol level and salicylate level- suspicion low - hepatitis panel - obtain stat complete abd ultrasound with Doppler- eval volume/thrombus - She is with mild encephalopathy Grade I - ammonia 89, INR increased to showing some degree of cellular injury - lactulose 20GM PO now - Ferritin and LDH sent - recheck- CMP/LFTS/lactate at 0600 - Pending clinical course and evaluation consider starting NAC RENAL/LYTES - ARF non-oliguric, metabolic acidosis, lactic acidosis - All likely secondary to shock - defend MAP of 65 - PH preserved - place villa catheter for UO monitoring with ARF and Shock requiring vasopressors ENDO - DMII on metformin and oxamic - Hold home agents - ICU hyperglyemic protocol - doubt DKA at this time however follow HEME - no evidence of bleeding, concern for lymphoma - obtain records from oncologist and imaging for review ID - septic shock can't be excluded - Continue broad spectrum antibiotics- adjust based on cultures - blood cultures 04/05/25- NGTD - UA LINES/IV ACCESS - PIV, may need central access and/or arterial line access Continue use of these lines DVT PROPHYLAXIS - SCDS, Eliquis DISPO: ICU while requiring vasopressors I have personally spent 55 minutes of critical care time in the direct management of this patient. This is a life/limb threatening event. This includes time spent evaluating patient, direct bedside care, chart review, placing orders, interpretation of diagnostic studies, discussion with consultants, patient, and family members, as well as other required patient management activities. This time is exclusive of all separately billable procedures, and teaching time and separate from and in addition to any other critical care service time. Thank you for allowing us to participate in the care of this patient. Please refer to my attending physician's documentation for any further recommendations. Supervising Physician Co-Signing Physician Notes Patient seen and examined. EMR reviewed. Discussed with critical care ENRIQUE as well as with bedside nurse and patient independently examined. 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 She presents now with shock, renal failure, acute liver failure with elevated ammonia and severely elevated ferritin. 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 She is on pressors now and likely warrants potential renal replacement therapy if renal indices continue to fail. Our facility does not have capacity for CRRT which the patient may benefit from given her hemodynamic instability. In addition, HLH is likely best diagnosed and managed at a tertiary facility. We also do not have hepatology here available so my recommendation is that the patient be transferred to a higher level of care. She is already established with [facility] and is not yet achieved a definitive diagnosis of her lymphoma. Will reach out to [facility] ICU to see if we can facilitate transfer to expedite care and provide appropriate standard of care for her moving forward. This was discussed with the patient as well as with the patient's daughter. History of Present Illness Reason for Consultation: shock unspecified Requesting Physician: Kuldeep Peralta MD Attending Physician: Mervin Vallejo MD History of Present Illness 74 YOF with medical history of: AFIB(on eliquis), LBB, HTN, HLD, DMII, CKD, hypomag, hypercalcemia, paratracheal mass- right (recent biopsy right hilar suspicious malignancy concerning for a lymphoma). Patient was initially admitted on 04/05/25 in the afternoon as she came to the ER for complaints of generalized weakness. She was noted to be significantly hypomag (0.9) and elevated lactate. She was also noted to be in afib with RVR, for which she was started on amiodarone infusion. Initial impression on admission was sepsis secondary to possible pneumonia/aspiration. She received IVF was loaded with amiodarone and initiated on broad spectrum antibiotics. Earlier this evening, patient was hypotensive and was initiated on further IVF, notified by hospitalist early this morning for patient now with dyspnea, hypoxia, hypotension. Labs repeated and now with significantly elevated LFTs, increasing [employer], slowly decreasing lactate. ABG obtained on arrival with metabolic acidosis, gap with elevated lactate and SEB as above. BiPAP initiated for her use of accessory muscles and hypoxia this reduced her RR and her VTs was > 600 so changed to CPAP. Will place on peripheral vasopressors for MAP support and obtain ultrasound of her liver/abdomen stat. CODE: FULL Allergies Allergy/AdvReac Type Severity Reaction Status Date / Time No Known Allergies Allergy Unverified 02/10/10 13:10 Home Medications Medication Instructions Recorded Confirmed Type allopurinol 300 mg tablet 300 mg PO DAILY 03/09/25 04/05/25 History calcium 600 mg (as 1 tab PO BID 03/09/25 04/05/25 History carbonate)-vitamin D3 10 mcg (400 unit) tablet (Calcium 600 + D(3)) clonazepam 0.5 mg tablet 0.5 mg PO UD 03/09/25 04/05/25 History omeprazole 20 mg capsule,delayed 40 mg PO DAILY 03/09/25 04/05/25 History release apixaban 5 mg tablet (Eliquis) 5 mg PO BID 04/05/25 04/05/25 History atorvastatin 40 mg tablet 40 mg PO DAILY 04/05/25 04/05/25 History dicyclomine 10 mg capsule 10 mg PO QID PRN Abdominal Pain 04/05/25 04/05/25 History magnesium chloride 64 mg 128 mg PO DAILY 04/05/25 04/05/25 History (magnesium chloride) tablet,delayed release metformin 500 mg tablet,extended 500 mg PO BID 04/05/25 04/05/25 History release 24 hr metoprolol succinate 50 mg 150 mg PO DAILY 04/05/25 04/05/25 History tablet,extended release 24 hr semaglutide 1 mg/dose (4 mg/3 mL) 1 mg subcut WK 04/05/25 04/05/25 History subcutaneous pen injector (Ozempic) Patient History Medical History (Updated 04/06/25 @ 04:00 by SCAR Lim) Mediastinal mass Family History Father Cancer Social History Smoking Status: Never smoker Second Hand Exposure: No; Do You Dip or Chew Tobacco: No; Hx Alcohol Use: No Hx Substance Use: No Preferred Language: Romanian Communication Ability: Effective Shoeshiner Required: No Beliefs That Will Affect Care: None Current Living Situation: Family Current Living Situation Comment: lives w/ son Feels Safe at Home: Yes Assistive Devices: Glasses and Walker Review of Systems Review of Systems: REVIEW OF SYSTEMS: Constitutional: tired and weak Eyes: No diplopia, no worsening or blurred vision ENT: normal hearing, no trouble swallowing Respiratory: No cough, sputum, dyspnea at rest or on exertion Cardiovascular: (+) palpitations, No chest pain, tightness Abdomen: (+) nausea, vomiting, loss of appetite, No pain, diarrhea or constipation Musculoskeletal: No joint pain, calf pain, swelling Neurologic: No weakness, numbness/tingling, or balance problems Psychiatric: No anxiety or depression Skin: No rash or itch Physical Exam Physical Exam: PHYSICAL EXAM: General: somnolent Head: Normocephalic, atraumatic ENT: non icteric, PERRLA, EOMI, no pharyngeal exudate, mucous membranes dry Neuro: AAO x 3, speech clear and appropriate, strength intact bilaterally 5/5, sensation intact and equal all extremities Chest: equal rise and fall of the chest, (+) accessory muscle use, decreased in bases Cardiac: Regular rate and rhythm, telemetry reviewed- NSR LBB, skin warm dry, cap refill ~3 seconds, peripheral pulses +2 no JVD, grade II systolic murmur GI: NABS x 4 quadrants, soft, nontender to palpation, no rebound, guarding or tenderness : Villa to gravity Skin: no rash or erythema Results & Data Results & Data Vital Signs (Past 12 Hours) Vital Signs Temp Pulse Pulse Resp BP BP BP 04/06/25 02:44 75/46 L 04/06/25 02:30 79 16 04/06/25 02:20 79/37 L 04/06/25 02:01 72/42 L 04/06/25 00:05 36.4 C L 84 18 83/52 L 04/05/25 21:59 04/05/25 19:33 110 H 99/56 L 04/05/25 19:31 113 H 70/39 L 04/05/25 19:10 36.4 C L 108 H 18 90/61 L 04/05/25 18:39 119 H 04/05/25 18:07 116 H 36 H 91/50 L 04/05/25 17:55 49 L 04/05/25 17:41 100 H 34 H 85/49 L 04/05/25 15:30 110 H 31 H 95/61 L 04/05/25 15:20 127 H 28 H 108/44 L 04/05/25 15:10 133 H 25 H 98/52 L 04/05/25 15:00 121 H 27 H 04/05/25 15:00 95/57 L 04/05/25 15:00 95/57 L 04/05/25 15:00 95/57 L 04/05/25 15:00 95/57 L 04/05/25 15:00 95/57 L Pulse Ox O2 Del Method O2 Flow Rate 04/06/25 02:44 04/06/25 02:30 92 Nasal Cannula 3 04/06/25 02:20 04/06/25 02:01 04/06/25 00:05 92 Nasal Cannula 2 04/05/25 21:59 Nasal Cannula 2 04/05/25 19:33 04/05/25 19:31 04/05/25 19:10 98 Nasal Cannula 2 04/05/25 18:39 04/05/25 18:07 94 Nasal Cannula 2 04/05/25 17:55 04/05/25 17:41 95 Nasal Cannula 2 04/05/25 15:30 96 Nasal Cannula 2 04/05/25 15:20 95 Nasal Cannula 2 04/05/25 15:10 96 Nasal Cannula 2 04/05/25 15:00 97 04/05/25 15:00 04/05/25 15:00 04/05/25 15:00 04/05/25 15:00 04/05/25 15:00 Laboratory Results Abnormal lab results 04/05/25 04/05/25 04/05/25 Range/Units 13:45 13:50 14:08 WBC (4.8-10.8) K/ul RBC 3.05 L (4.20-5.40) M/uL Hgb 9.7 L (12.0-16.0) g/dL POC Hgb (12.0-16.0) g/dl Hct 29.5 L (37.0-47.0) % POC Hct (37-47) % MCHC (32.0-36.0) g/dL RDW Std Deviation 59.7 H (36.4-46.3) fL RDW Coeff of Lupe 17.1 H (11.5-14.5) % MPV 13.3 H (9.4-12.4) fL [place] # (Auto) 0.63 H (0.11-0.59) K/uL PT 13.3 H (9.0-12.0) Seconds INR 1.3 H (0.9-1.1) POC pH (7.35-7.45) POC pCO2 (35-46) mmHg POC pO2 (80-95) mmHg POC HCO3 (19-24) mmol/L POC Base Excess (-9-1.8) mmol/L ABG pH (Temp Correct) (7.35-7.45) ABG pCO2 (Temp Corrct (35-46) mmHg POC ABG O2 Sat (90-95) % VBG pCO2 32 L (38-50) mmHg POC Sodium (135-144) mmol/L Sodium 135 L (136-145) mmol/L POC Potassium (3.3-5.0) mmol/L Potassium (3.5-5.1) mmol/L Chloride (98-107) mmol/L Carbon Dioxide 19 L (21-32) mmol/L POC Total CO2 (24-31) mmol/L Anion Gap (3-11) POC BUN (7-18) mg/dl BUN 41 H (6-23) mg/dl Creatinine 1.89 H (0.6-1.2) mg/dl POC Creatinine (0.6-1.3) mg/dl BUN/Creatinine Ratio 21.7 H (10-20) Glucose 190 H (70-99(Fasting)) mg/dl POC Glucose (70-99) mg/dl POC Glucose (other) (70-99) mg/dl Lactate 2.5 H* (0.4-2.0) mmol/L Calcium 11.4 H (8.6-10.3) mg/dl POC Ioniz Calcium Bre (1.12-1.32) mmol/l Magnesium 0.9 L* (1.7-2.4) mg/dl Total Bilirubin 1.3 H (0.2-1.0) mg/dl Direct Bilirubin 0.5 H (0-0.2) mg/dl AST (13-39) U/L ALT 6 L (7-52) U/L Alkaline Phosphatase (34-104) U/L Troponin I High Sens 252.9 H* (0-14) pg/ml Total Protein (6.0-8.3) gm/dl Albumin (3.4-5.0) gm/dl Procalcitonin 0.83 H (0-0.5) ng/ml 04/05/25 04/05/25 04/05/25 Range/Units 14:14 16:18 18:50 WBC (4.8-10.8) K/ul RBC (4.20-5.40) M/uL Hgb (12.0-16.0) g/dL POC Hgb 8.5 L (12.0-16.0) g/dl Hct (37.0-47.0) % POC Hct 25 L (37-47) % MCHC (32.0-36.0) g/dL RDW Std Deviation (36.4-46.3) fL RDW Coeff of Lupe (11.5-14.5) % MPV (9.4-12.4) fL [place] # (Auto) (0.11-0.59) K/uL PT (9.0-12.0) Seconds INR (0.9-1.1) POC pH (7.35-7.45) POC pCO2 (35-46) mmHg POC pO2 (80-95) mmHg POC HCO3 (19-24) mmol/L POC Base Excess (-9-1.8) mmol/L ABG pH (Temp Correct) (7.35-7.45) ABG pCO2 (Temp Corrct (35-46) mmHg POC ABG O2 Sat (90-95) % VBG pCO2 (38-50) mmHg POC Sodium (135-144) mmol/L Sodium (136-145) mmol/L POC Potassium 5.1 H (3.3-5.0) mmol/L Potassium (3.5-5.1) mmol/L Chloride (98-107) mmol/L Carbon Dioxide (21-32) mmol/L POC Total CO2 18 L (24-31) mmol/L Anion Gap (3-11) POC BUN 40 H (7-18) mg/dl BUN (6-23) mg/dl Creatinine (0.6-1.2) mg/dl POC Creatinine 2.1 H (0.6-1.3) mg/dl BUN/Creatinine Ratio (10-20) Glucose (70-99(Fasting)) mg/dl POC Glucose 265 H (70-99) mg/dl POC Glucose (other) 187 H (70-99) mg/dl Lactate 2.6 H* (0.4-2.0) mmol/L Calcium (8.6-10.3) mg/dl POC Ioniz Calcium Bre 1.45 H (1.12-1.32) mmol/l Magnesium (1.7-2.4) mg/dl Total Bilirubin (0.2-1.0) mg/dl Direct Bilirubin (0-0.2) mg/dl AST (13-39) U/L ALT (7-52) U/L Alkaline Phosphatase (34-104) U/L Troponin I High Sens 244.9 H* (0-14) pg/ml Total Protein (6.0-8.3) gm/dl Albumin (3.4-5.0) gm/dl Procalcitonin (0-0.5) ng/ml 04/05/25 04/05/25 04/05/25 Range/Units 20:18 20:20 23:00 WBC (4.8-10.8) K/ul RBC (4.20-5.40) M/uL Hgb (12.0-16.0) g/dL POC Hgb (12.0-16.0) g/dl Hct (37.0-47.0) % POC Hct (37-47) % MCHC (32.0-36.0) g/dL RDW Std Deviation (36.4-46.3) fL RDW Coeff of Lupe (11.5-14.5) % MPV (9.4-12.4) fL [place] # (Auto) (0.11-0.59) K/uL PT (9.0-12.0) Seconds INR (0.9-1.1) POC pH (7.35-7.45) POC pCO2 (35-46) mmHg POC pO2 (80-95) mmHg POC HCO3 (19-24) mmol/L POC Base Excess (-9-1.8) mmol/L ABG pH (Temp Correct) (7.35-7.45) ABG pCO2 (Temp Corrct (35-46) mmHg POC ABG O2 Sat (90-95) % VBG pCO2 (38-50) mmHg POC Sodium (135-144) mmol/L Sodium (136-145) mmol/L POC Potassium (3.3-5.0) mmol/L Potassium (3.5-5.1) mmol/L Chloride (98-107) mmol/L Carbon Dioxide (21-32) mmol/L POC Total CO2 (24-31) mmol/L Anion Gap (3-11) POC BUN (7-18) mg/dl BUN (6-23) mg/dl Creatinine (0.6-1.2) mg/dl POC Creatinine (0.6-1.3) mg/dl BUN/Creatinine Ratio (10-20) Glucose (70-99(Fasting)) mg/dl POC Glucose 254 H (70-99) mg/dl POC Glucose (other) (70-99) mg/dl Lactate 7.2 H* 5.4 H* (0.4-2.0) mmol/L Calcium (8.6-10.3) mg/dl POC Ioniz Calcium Bre (1.12-1.32) mmol/l Magnesium (1.7-2.4) mg/dl Total Bilirubin (0.2-1.0) mg/dl Direct Bilirubin (0-0.2) mg/dl AST (13-39) U/L ALT (7-52) U/L Alkaline Phosphatase (34-104) U/L Troponin I High Sens (0-14) pg/ml Total Protein (6.0-8.3) gm/dl Albumin (3.4-5.0) gm/dl Procalcitonin (0-0.5) ng/ml 04/06/25 04/06/25 04/06/25 Range/Units 02:16 02:17 03:22 WBC 11.65 H (4.8-10.8) K/ul RBC 2.54 L (4.20-5.40) M/uL Hgb 8.1 L (12.0-16.0) g/dL POC Hgb 8.2 L (12.0-16.0) g/dl Hct 25.4 L (37.0-47.0) % POC Hct 24 L (37-47) % MCHC 31.9 L (32.0-36.0) g/dL RDW Std Deviation 60.5 H (36.4-46.3) fL RDW Coeff of Lupe 16.9 H (11.5-14.5) % MPV 13.7 H (9.4-12.4) fL [place] # (Auto) (0.11-0.59) K/uL PT (9.0-12.0) Seconds INR (0.9-1.1) POC pH 7.30 L (7.35-7.45) POC pCO2 26 L (35-46) mmHg POC pO2 97 H (80-95) mmHg POC HCO3 13 L (19-24) mmol/L POC Base Excess -14.0 L (-9-1.8) mmol/L ABG pH (Temp Correct) 7.300 L (7.35-7.45) ABG pCO2 (Temp Corrct 26 L (35-46) mmHg POC ABG O2 Sat 97.0 H (90-95) % VBG pCO2 (38-50) mmHg POC Sodium 134 L (135-144) mmol/L Sodium 135 L (136-145) mmol/L POC Potassium 5.7 H (3.3-5.0) mmol/L Potassium 5.8 H (3.5-5.1) mmol/L Chloride 108 H (98-107) mmol/L Carbon Dioxide 14 L (21-32) mmol/L POC Total CO2 14 L (24-31) mmol/L Anion Gap 13 H (3-11) POC BUN (7-18) mg/dl BUN 48 H (6-23) mg/dl Creatinine 2.33 H D (0.6-1.2) mg/dl POC Creatinine (0.6-1.3) mg/dl BUN/Creatinine Ratio 20.6 H (10-20) Glucose 223 H (70-99(Fasting)) mg/dl POC Glucose (70-99) mg/dl POC Glucose (other) (70-99) mg/dl Lactate 4.5 H* (0.4-2.0) mmol/L Calcium (8.6-10.3) mg/dl POC Ioniz Calcium Bre (1.12-1.32) mmol/l Magnesium (1.7-2.4) mg/dl Total Bilirubin 1.2 H (0.2-1.0) mg/dl Direct Bilirubin (0-0.2) mg/dl AST 3605 H (13-39) U/L ALT 1812 H (7-52) U/L Alkaline Phosphatase 125 H (34-104) U/L Troponin I High Sens (0-14) pg/ml Total Protein 5.8 L (6.0-8.3) gm/dl Albumin 2.9 L (3.4-5.0) gm/dl Procalcitonin (0-0.5) ng/ml Medications Administered Apixaban (Apixaban 5 Mg Tablet) 5 mg PO BID LUCILA Stop: 05/05/25 20:59 Last Admin: 04/05/25 20:29 Dose: 5 mg Documented By: JACE Clonazepam (Clonazepam 0.5 Mg Tab) 1 mg PO QPM LUCILA Stop: 05/05/25 20:59 Last Admin: 04/05/25 20:37 Dose: 1 mg Documented By: JACE Amiodarone HCl/Dextrose (Nexterone / D5w) 360 mg in 200 mls @ 16.667 mls/hr IV .Q12H [facility] Stop: 05/05/25 22:40 Last Admin: 04/05/25 22:52 Dose: 0.5 mg/min, 16.7 mls/hr Documented By: JACE Co-signed By: AEV Ampicillin Sodium/Sulbactam Sodium (Unasyn) 3,000 mg in 100 mls @ 200 mls/hr IV Q12H [facility]; Protocol Stop: 04/10/25 20:59 Last Infusion: 04/05/25 23:22 Dose: Infused Documented By: Admin: 04/05/25 22:51 Dose: 200 mls/hr Documented By: JACE Phenylephrine HCl (Phenylephrine/Nss) 25 mg in 250 mls @ 21.215 mls/hr IV .[id number] [facility]; Protocol Stop: 05/06/25 02:59 Last Admin: 04/06/25 03:17 Dose: 0.5 mcg/kg/min, 21.2 mls/hr Documented By: CHRISTIANO Co-signed By: SLADE Insulin Aspart (Insulin Aspart Per Unit Charge) 0 units SC ACHS [facility] Stop: 05/05/25 20:59 Last Admin: 04/05/25 20:37 Dose: 3 units Documented By: JACE Co-signed By: VK Metoprolol Tartrate (Metoprolol Tartrate 25 Mg Tab) 12.5 mg PO QID [facility] Stop: 05/05/25 16:59 Last Admin: 04/05/25 20:30 Dose: Not Given Documented By: Admin: 04/05/25 19:39 Dose: Not Given Documented By: JACE Discontinued Medications Sodium Chloride (Nss) 500 mls @ 999 mls/hr IV .Q31M ONE Stop: 04/05/25 14:13 Last Infusion: 04/05/25 14:20 Dose: Infused Documented By: ponce Admin: 04/05/25 13:50 Dose: 999 mls/hr Documented By: ponce Magnesium Sulfate/Dextrose (Magnesium Sulfate / D5w) 1 gm in 100 mls @ 100 mls/hr IV NOW STA Stop: 04/05/25 14:50 Last Infusion: 04/05/25 14:58 Dose: Infused Documented By: [facility] Admin: 04/05/25 13:54 Dose: 100 mls/hr Documented By: LAURA Ceftriaxone Sodium (Rocephin) 2,000 mg in 50 mls @ 100 mls/hr IV NOW STA Stop: 04/05/25 14:49 Last Infusion: 04/05/25 14:58 Dose: Infused Documented By: [facility] Admin: 04/05/25 14:23 Dose: 100 mls/hr Documented By: LAURA Sodium Chloride (Nss) 500 mls @ 999 mls/hr IV .Q31M ONE Stop: 04/05/25 15:14 Last Infusion: 04/05/25 15:24 Dose: Infused Documented By: [facility] Admin: 04/05/25 14:45 Dose: 999 mls/hr Documented By: ponce Magnesium Sulfate/Dextrose (Magnesium Sulfate / D5w) 1 gm in 100 mls @ 100 mls/hr IV NOW STA Stop: 04/05/25 15:44 Last Infusion: 04/05/25 16:16 Dose: Infused Documented By: [facility] Admin: 04/05/25 15:01 Dose: 100 mls/hr Documented By: ponce Amiodarone HCl/Dextrose (Nexterone / D5w) 360 mg in 200 mls @ 33.333 mls/hr IV ONE ONE; Protocol Stop: 04/05/25 22:41 Last Infusion: 04/05/25 22:53 Dose: Infused Documented By: JACE Co-signed By: DANA Admin: 04/05/25 17:21 Dose: 1 mg/min, 33.3 mls/hr Documented By: BRANDY Co-signed By: ponce Sodium Chloride (Nss) 1,000 mls @ 80 mls/hr IV .[id number] [facility] Stop: 04/06/25 17:59 Last Infusion: 04/05/25 20:57 Dose: Infused Documented By: Admin: 04/05/25 17:52 Dose: 80 mls/hr Documented By: ponce Doxycycline Hyclate 100 mg/ (Dextrose) 100 mls @ 50 mls/hr IV ONE ONE Stop: 04/05/25 18:59 Last Infusion: 04/05/25 21:28 Dose: Infused Documented By: Admin: 04/05/25 19:27 Dose: 50 mls/hr Documented By: JACE Sodium Chloride (Nss) 500 mls @ 999 mls/hr IV .Q31M ONE Stop: 04/05/25 20:13 Last Infusion: 04/05/25 20:47 Dose: Infused Documented By: Admin: 04/05/25 19:45 Dose: 999 mls/hr Documented By: JACE Magnesium Sulfate/Dextrose (Magnesium Sulfate / D5w) 1 gm in 100 mls @ 50 mls/hr IV ONE ONE Stop: 04/05/25 22:12 Last Infusion: 04/05/25 22:55 Dose: Infused Documented By: Admin: 04/05/25 20:54 Dose: 50 mls/hr Documented By: JACE Lactated Ringer's (Lr) 1,000 mls @ 100 mls/hr IV .Q10H [facility] Stop: 04/08/25 20:59 Last Infusion: 04/06/25 02:15 Dose: 0 mls/hr Documented By: Infusion: 04/05/25 23:03 Dose: 200 mls/hr Documented By: Admin: 04/05/25 20:55 Dose: 100 mls/hr Documented By: JACE Ipratropium [place] (Ipratropium [place] Neb Soln 0.02% 0.5mg/2.5ml Vial) 0.5 mg INH NOW STA Stop: 04/06/25 02:17 Last Admin: 04/06/25 02:29 Dose: 0.5 mg Documented By: FAB Levalbuterol HCl (Levalbuterol 1.25 Mg/3 Ml Neb) 1.25 mg NEB NOW STA Stop: 04/06/25 02:17 Last Admin: 04/06/25 02:29 Dose: 1.25 mg Documented By: FAB Midodrine (Midodrine Hcl 2.5 Mg Tab) 2.5 mg PO NOW STA Stop: 04/05/25 23:04 Last Admin: 04/05/25 23:14 Dose: 2.5 mg Documented By: JACE Midodrine (Midodrine Hcl 2.5 Mg Tab) 2.5 mg PO NOW STA Stop: 04/06/25 02:05 Last Admin: 04/06/25 02:16 Dose: 2.5 mg Documented By: JACE ECG Additional Comments: Normal sinus rhythm PossibleLeft atrial enlargement Left bundle branch block Abnormal ECG When compared with ECG 13:41, Sinus rhythmhas replacedAtrial fibrillation Vent. ratehas decreasedby 52bpm T wave amplitude has decreased inAnterior leads T wave inversion no longer evident inLateral leads Coding Level of Care Code 07724 CRITICAL CARE 1ST 30-74M Diagnoses Atrial fibrillation with rapid ventricular response I48.91 Hypercalcemia E83.52 Acute kidney injury superimposed on CKD N17.9; N18.9 Hypoxia R09.02 Hypomagnesemia E83.42
[2025-04-06 03:36] LABS: iSTAT Art Bld Gas Base Excess -14.0 mmol/L (-9-1.8); iSTAT Art Bld Gas pCO2 Correct 26 mmHg (35-46); iSTAT Art Bld Gas pH Corrected 7.300 (7.35-7.45); iSTAT Arterial Blood Gas pO2 C 97
--- NOTE | 2025-04-06 03:48 | XRay Report ---
EXAM: XR chest 1V portable CLINICAL HISTORY: sob TECHNIQUE: Radiograph of chest was acquired. COMPARISON: CT 03/08/2025 19:37:01 BUSINESS OFFICE ASSOCIATE. FINDINGS: There is obscuration of bilateral costophrenic angles with haziness in right middle and bilateral lower zones. Superior mediastinal widening seen. Right hilar prominence is seen. No acute osseous abnormality. IMPRESSION: 1. Bilateral pleural effusion (right left) - new. 2. Right hilar prominence - corroborating with previously seen right sided mediastinal / hilar mass lesion. Electronically signed by Hugo Lezama 04-06-2025 03:47 AM
[2025-04-06] MEDS: ACETAMINOPHEN 1,000 MG/100 ML VIAL IV STA (04:15)
[2025-04-06] MEDS: NOREPINEPHRINE/D5W 4 MG/250 ML PLCT IV SCH (04:16)
[2025-04-06 04:25] LABS: Anion Gap 13.0 (3-11); Blood Urea Nitrogen 50.0 mg/dl (6-23); Calcium 9.5 mg/dl (8.6-10.3); Carbon Dioxide 14.0 mmol/L (21-32); Chloride 106.0 mmol/L (98-107); Creatinine Clr Calc Pharmacy 20.7 ml/min; Glucose 218.0 mg/dl (70-99(Fasting)); Magnesium 2.0 mg/dl (1.7-2.4); Potassium 5.8 mmol/L (3.5-5.1); Sodium 133.0 mmol/L (136-145)
[2025-04-06 04:35] LABS: Appearance Urine Cloudy (Clear); Bacteria Urine Automated None Seen (None Seen); Cast Urine Automated >20 /lpf (0-2); Epithelial Cell Urine Auto 0-2 /hpf (0-2); Glucose Urine UA Negative (Negative); RBC Urine Automated 0-2 /hpf (0-2); WBC Urine Automated 0-5 /hpf (0-5)
[2025-04-06 04:41] LABS: INR 1.6 (0.9-1.1); Prothrombin Time 16.3 Seconds (9.0-12.0)
[2025-04-06] MEDS: LACTULOSE SYRUP 20 GM/30 ML UDC PO ONE (04:41)
[2025-04-06 05:03] LABS: Acetaminophen < 3 ug/ml (10-30); Salicylate < 3.0 mg/dl (3.0-30)
[2025-04-06 05:37] LABS: Hep B Surface Ag with confirm Negative (Negative)
[2025-04-06 05:43] VITALS: TEMP 99.3; O2SAT 98
[2025-04-06] MEDS: ONDANSETRON INJ 2 MG/ML 2 ML VIAL IV PRN (05:49)
[2025-04-06 05:50] LABS: Hep C Ab Rflx HepCQuant RNA Prelim Positive (Negative)
[2025-04-06 05:58] LABS: Albumin Level 3.4 gm/dl (3.4-5.0); Anion Gap 12.0 (3-11); Bilirubin,Total 1.2 mg/dl (0.2-1.0); Calcium 9.7 mg/dl (8.6-10.3); Carbon Dioxide 15.0 mmol/L (21-32); Chloride 107.0 mmol/L (98-107); Potassium 6.0 mmol/L (3.5-5.1); Sodium 134.0 mmol/L (136-145)
[2025-04-06 06:03] LABS: Ferritin > 7500.0 ng/ml (8-388)
[2025-04-06 06:04] LABS: Blood Urea Nitrogen 48.0 mg/dl (6-23); Creatinine Clr Calc Pharmacy 19.3 ml/min; Glucose 204.0 mg/dl (70-99(Fasting))
--- NOTE | 2025-04-06 06:05 | Ultrasound Report ---
EXAM: US abdomen limited CLINICAL HISTORY: Shock, elevated LFTs, and biliary labs. (Patient states no pain in the abdomen at the time of scan). TECHNIQUE: Ultrasound examination of the RUQ was performed using a low-frequency transducer. Limited scan, done at bedside in ICU, pt on bipap and unable to hold breath/position COMPARISON: 03/08/2025 CT reviewed FINDINGS: Liver: Liver size: 14.8 cm. Liver appears normal in size with increased echogenicity and slightly coarse echotexture. No evidence of focal lesions, cysts, or masses. Hepatic vasculature appears normal. The main portal vein is patent. Gallbladder: Gallbladder size: The gallbladder is visualised and appears normal in size and shape. No gallstones, sludge, or wall thickening. Wall thickness measures 3 mm. A minimal amount of fluid is seen adjacent to the gall bladder. Negative sonographic Vasquez's sign. No evidence of gallbladder wall oedema or signs of acute cholecystitis. Biliary Tree: Common bile duct diameter: measures 3 mm at the hui hepatis and 7.2 mm in the pancreatic course. Right Kidney: Right kidney size: 9.6 x 5.1 x 4.8 cm. The right kidney appears relatively small in size, with thinned out parenchyma and still preserved corticomedullary differentiation. No evidence of hydronephrosis or masses. A cortical cyst is seen at the upper pole measuring 1.2 x 1.2 x 1 cm. Additional Findings: The visualised pancreas appears within normal limits. Duct measures 0.23 cm. Tail is obscured. Right pleural effusion is noted. IMPRESSION: Ultrasound examination of the Right Upper Quadrant (RUQ): 1. Hepatic steatosis with mild coarse echotexture, plese corelate with liver function tests. 2. Dilated common bile duct in the region of the head of the pancreas. This needs correlation with serum bilirubin, and if clinically indicated, further evaluation by MRCP can be suggested. 3. Relatively small right kiney, with thinned out parenchyma and an upper pole cyst. correlate with renal function tests 4. Trace fluid near the gall bladder. No wall oedema, gallstones or sludge. Negative sonographic Vasquez's sign. could be ascites rather than inflammatory gall bladder pathology 5. Right pleural effusion. Electronically signed by Cipriano Painting 04-06-2025 06:05 AM
--- NOTE | 2025-04-06 06:06 | Ultrasound Report ---
EXAM: US duplex portal hepatic veins CLINICAL HISTORY: eval for thrombus or volume overload TECHNIQUE: Static ultrasound images with Grayscale and Doppler of the liver were submitted for review. COMPARISON: None. FINDINGS: Limited, done at bedside in ICU, patient on bipap and unable to hold breath/position. The liver is normal in size and echogenicity with no focal masses or intrahepatic biliary dilatation. The common bile duct within normal limits. Hepatic veins show normal color flow and spectral waveforms. Normal hepatopetal flow. Portal vein is patent with normal color flow and spectral velocity. The aorta is normal in caliber. Note is made of right pleural effusion. IMPRESSION: 1. No evidence of any obvious portal vein or hepatic vein thrombus in this evaluation. 2. Right pleural effusion. Electronically signed by Hugo Lezama 04-06-2025 06:06 AM
--- NOTE | 2025-04-06 06:11 | Procedure Note ---
Procedure Note Date of Service April 06, 2025 Procedure: Arterial Line Placement Proceduralist: Guy ABBOTT ([facility]-) Attending: Dr. MARTINEZ Indication: Monitoring on Pressors Anesthesia: [x]Lidocaine 1% Verbal Consent was obtained from patient as delegated to me by Dr. Martinez, risks and benefits were discussed to include but not limited to- pain, infection, bleeding, thrombosis, loss of limb, damage to surrounding structures, damage to artery needing further procedures. IAN Mancilla, IAN Torrez were also in room for witnesses. A time-out was completed verifying correct patient, procedure, site, positioning, or special equipment if applicable. Allens test was performed to ensure adequate perfusion. Patients RIGHT wrist was prepped and draped in the usual sterile fashion. Ultrasound guidance was used to aid needle placement. A 20g Arrow arterial line was introduced into the RIGHT RADIAL artery x 1 attempt, brisk blood return was noted, the wire was advanced without resistance and the catheter was threaded without resistance. The needle and wire were removed with appropriate blood return. Pressure tubing was attached and a good arterial waveform was observed. The patient tolerated the procedure well. The line was secured with suture and sterile dressing was applied. Blood Loss: Minimal Complications: None immediate Artery Identified: YES Line confirmed in Artery with ultrasound: YES Complications: NONE Patient tolerated procedure: [facility] [place] Procedure Codes (Charges) Tubes, Drains, and Vasc Access Procedure 1: Tubes, Drains, and Vasc Access: [id number] Arterial Cath/Cannulation Sampling/Monitoring/Transfusion Coding CPT Codes Tubes, Drains, and Vasc Access - Tubes, Drains, and Vasc Access: [id number] Arterial Cath/Cannulation Sampling/Monitoring/Transfusion ([id number]) Additional Codes Date of Service (PG.SURGERY)
[2025-04-06 06:42] LABS: Alanine Aminotransferase 2146.0 U/L (7-52); Albumin Globulin Ratio 1.3 (0.9-2); Alkaline Phosphatase 130.0 U/L (34-104); Globulin 2.7 gm/dl (2.5-4.0); Lipase 167.0 U/L (11-82); Total Protein 6.1 gm/dl (6.0-8.3)
[2025-04-06 06:52] LABS: iSTAT Art Bld Gas Base Excess -14.0 mmol/L (-9-1.8); iSTAT Art Bld Gas pCO2 Correct 25 mmHg (35-46); iSTAT Art Bld Gas pH Corrected 7.298 (7.35-7.45); iSTAT Arterial Blood Gas pO2 C 96
[2025-04-06] MEDS ORDERED: STAT IV/IM STA (06:55)
[2025-04-06] MEDS ORDERED: AcetylCYSTEINE IV 21 HR REGIMEN (>40KG) IV STA (06:55)
--- NOTE | 2025-04-06 07:14 | Communication Note ---
Date of Service: April 06, 2025 Delayed entry 04/05 845 PM Made aware by RN of lactic acid level of 7.2 from 2.6. SBP 80s to 90s. AP Severe sepsis SIRS plus lactic acidosis Possible aspiration pneumonia given cough/vomiting symptoms as per HPI Unasyn in place of ceftriaxone Continue doxycycline Careful IV hydration given history of systolic dysfunction Hold Lopressor for now given hypotension Midodrine 1 dose now May need ICU transfer to facilitate pressor Rx if without improvement 04/06 2 AM Patient SBP 70s. Patient with labored breathing. PPE Wane, respiratory distress, abdominal breathing Decreased breath sounds Chest x-ray as per my interpretation congestion/bilateral pleural effusions Lactic acid 4.5 from 7.2 AP Septic shock Fluid overload ICU transfer to facilitate Levophed Hold IVF Patient daughter updated of developments over the phone.
[2025-04-06] MEDS: DOXYCYCLINE HYCLATE 100 MG in DEXTROSE 5% MINI-B 100 ML IV SCH (07:42)
[2025-04-06] MEDS: FUROSEMIDE INJ 20 MG/2 ML VIAL IV ONE (08:33)
[2025-04-06 08:37] LABS: Fibrinogen 427 mg/dl (184-400)
--- NOTE | 2025-04-06 08:41 | Discharge Summary ---
Date of Service April 06, 2025 Admission HPI Per Admitting Provider Patient is 74-year-old female with PMH LBBB, HTN, HLD, DM II, CKD III, hypomagnesemia, newly found paratracheal mass, hypercalcemia, and others listed below presented to ER with c/o generalized weakness. Extensive inpatient and outpatient chart review as well as discussion with patient's daughter at bedside. Hospital admission at [facility] 03/09/25 for newly found paratracheal mass and hypercalcemia and treated with IVF, zoledronic acid and transferred to [facility] for biopsy by thoracic surgery. 03/09/25-03/15/25 [facility] admission. Her calcium improved with fluids. Endocrinology consulted with no further recommendations. New onset atrial fibrillation during hospitalization initially treated with IV Lopressor and placed on metoprolol 150mg daily, Eliquis 5mg BID. Patient underwent a nocturnal oxygen study that showed that she needed 2 L at night, and an ambulatory oxygen showed that she did not need any oxygen with movement. On 03/13, the patient underwent endobronchial ultrasound with biopsy. Cytology showing high-grade lymphoma. Her aspirin, atenolol, chlorthalidone, trazodone was discontinued. She was discharged on 2L oxygen HS Per patient's daughter patient with decreased appetite. She is on Ozempic but hasn't taken past couple of weeks but did take 3 days ago. Reports worse anorexia past 3 days. with decreased oral intake. PCP decreased dose of Ozempic to 1mg on 04/03/25 per outpatient chart review. Patient reports feels generally weak and is not moving around much at home secondary to weakness. She uses walker at baseline. Denies falls. Denies chest pain, SOB, palpitations, dizziness, syncope. She reports took her medications this morning including metoprolol and Eliquis. Daughter states initially patient refused going back to [facility] for thoracic surgery to attempt to obtain another biopsy but a few days ago decided she wanted that and are trying to get is scheduled outpatient now. Patient states has been having cough but unable to further elaborate. Denies hemoptysis. States one episode vomiting "small amount" last night. States today no further vomiting and did eat yogurt this morning. Denies fever/chills, diaphoresis, diarrhea, ZAVALA, dizziness, syncope, rhinorrhea, abdominal pain, extremity edema, rashes, urinary symptoms. Admission Exam Per Admitting Provider General: +chronic ill appearing, no distress lying supine in bed Head: normocephalic, atraumatic Eyes: pale conjunctiva, anicteric ENT: normal inspection external ears, nose, mucous membranes moist Neck: supple, trachea midline, non-tender Lungs: no respiratory distress, diminished breath sounds CV: irregularly irregular, rate 120, no pretibial edema Abd: normal BS, soft, non-tender Ext: no cyanosis, no calf tenderness Neuro: A&O x 3, no focal deficits noted, normal affect Skin: pale, warm, dry Principal Diagnosis Multiorgan failure likely secondary HLH due to lymphoma Lymphoma Discharge Exam General: +chronic ill appearing, no distress lying supine in bed, on 2L NC O2 Head: normocephalic, atraumatic Eyes: pale conjunctiva, anicteric ENT: normal inspection external ears, nose, mucous membranes moist Neck: supple, trachea midline, non-tender Lungs: no respiratory distress, diminished breath sounds CV:RRR, 80, no pretibial edema Abd: normal BS, soft, non-tender Ext: no cyanosis, no calf tenderness Neuro: A&O x 3, no focal deficits noted, normal affect Skin: pale, warm, dry Discharge Data Allergies Allergy/AdvReac Type Severity Reaction Status Date / Time No Known Allergies Allergy Unverified 02/10/10 13:10 Consultations 04/05/25 15:05 ED Decision to Admit Stat 04/05/25 16:17 Consult Cardiology Routine 04/06/25 03:14 Consult Retail Account Executive Routine 04/06/25 06:56 Consult Gastroenterology Routine 04/06/25 07:14 Consult Nephrology Routine Ordered Studies 04/06/25 03:33 US abdomen limited Stat 04/06/25 03:47 US duplex portal hepatic veins Stat Hospital Course (1) Atrial fibrillation with rapid ventricular response: (2) Acute kidney injury superimposed on CKD: (3) Hypercalcemia: (4) Hypomagnesemia: Per prior attending w/ addendum: Patient is 74-year-old female with PMH LBBB, HTN, HLD, DM II, CKD III, hypomagn esemia, newly found paratracheal mass, hypercalcemia, and others listed below presented to ER with c/o generalized weakness. #Atrial Fibrillation RVR Today in ER Afebrile, P: 133, R: 20, BP 108/62, 95% on room air and noted 89% on room air BP dropped to 82/67 with HR 128 Found to be in A-fib RVR Remained in afib RVR in ER with soft BP's EKG Atrial fibrillation, rate 133, LBBB per my interpretation Troponin: 252-->244 03/08/25 TSH: 3.8 03/10/25 Echo: EF: 55-59%, no LV wall motion abnormalities, severe mixed aortic valve disease with significantly elevated transaortic velocitites, likely combination of high flow due to aortic regurgitation as well leaflet restriction from aortic stenosis. moderate mitral regurgitation present In ER given total 1L NSS Pt denies SOB, CP, palpitations Discussed with cardiology. Plan to do limited Echo. Plans to start amiodarone. Will hold home metoprolol succinate and start metoprolol tartrate as blood pressures allow CBC, CMP, magnesium labs in am #Peritracheal Mass S/P bronchoscopic evaluation and EBUS on 03/13/2025: Mediastinal adenopathy. Paratracheal adenopathy. The airway examination was normal. Endobronchial ultrasound was performed. Transbronchial needle aspiration was performed in 3 stations as outlined above. Right paratracheal lymph node FNA --> nondiagnostic, few large atypical cells Right hilar FNA --> suspicious for malignancy, rare atypical large cells, suspicious high-grade/large cell lymphoma. Recommend large biopsy for confirmation and/or subclassification. Initially pt denied further biopsy but couple days ago decided wants biopsy and reports trying to get scheduled at [facility] Had PET-CT scan on 03/22/2025 Following with oncology, Dr Perez Will need further biopsy to determine further treatment plans #Hypercalcemia Last admission with Ca: 14.9 treated with IVF, zoledronic acid Today Ca: 11.4 (03/20/2025: Calcium: 10.1) Hold home calcium supplements NSS Monitor BMP #Hypomagnesemia K: 4.9. Magnesium: 0.9 In ER given 2gm magnesium sulfate IV Per outpatient review magnesium: 0.9 on 04/03/25. Daughter states patient taking magnesium chloride 2 tabs daily and was unaware to start magnesium oxide daily. Replace and monitor #Pneumonia No leukocytosis. Lactate: 2.5. Procalcitonin: 0.8. Influenza, RSV, SARS-CoV-2 negative Blood cultures pending CXR:Large right upper mediastinal mass is grossly stable. Pulmonary nodules are better seen on the prior exam. There is stable mild cardiomegaly without pulmonary vascular congestion. There is interval patchy opacity medial right lung base. No other consolidation or pleural effusion seen. No pneumothorax In ER given total 1L NSS, Rocephin Trend lactate Gentle NSS Rocephin, doxycycline CBC in am #Hypoxic respiratory failure At [facility] pt underwent a nocturnal oxygen study that showed that she needed 2 L at night, and an ambulatory oxygen showed that she did not need any oxygen with movement Today in ER hypoxic and improved with 2L via NC Supplemental oxygen as needed and continue HS oxygen #SEB on CKD III Recent SEB in 02/2025 BUN: 41, Cr: 1.89. (03/20/25: BUN: 29, creatinine: 1.5) Gentle IVF Monitor renal functions If worsening consider nephrology consult #HTN Hypotensive in ER Holding home metoprolol succinate as above #HLD Continue atorvastatin #DM II A1c: 6.7 on 03/20/25 Hold home Ozempic Novolog sliding scale per protocol #Chronic anemia Hgb: 9.7. (03/20/25: H/H: 9.9/31) Monitor H&H DVT Prophylaxis On Eliquis Admit PCU Full Code as per discussion with pt and pt's daughter at bedside Follows with Dr Caraballo for routine care Addendum 04/06/2025: Patient was seen and examined at bedside. Patient was admitted for atrial fibrillation RVR, hypercalcemia, pneumonia; and had multiorgan failure overnight likely secondary to possible HLH due to lymphoma. ICU team coordinated transfer of [facility]. Patient was accepted and discharged to [facility]. Home Health Attestation I certify that this patient is under my care and that I, or a physicians retail assistant store manager working with me, had a face to-face encounter that meets the home health [id number] encounter requirements with this patient. The encounter with the patient was in whole, or in part, for the following medical condition, which is the primary reason for home health care (list medical condition): I certify that, based on my findings, the following services are medically necessary home health services: My clinical findings support the need for the above services because: Further, I certify that my clinical findings support that this patient is homebound (i.e. absences from home require considerable and taxing effort and are for medical reasons or jew services or infrequently or of short durat ion when for other reasons) because: Certification for Home Health Services: Based on the above findings, I certify that this patient is confined to the home and needs intermittent fdc care, physical therapy and/or speech therapy or continues to need occupational therapy. The patient is under my care, and I have initiated the establishment of the plan of care. This patient will be followed by a physician who will periodically review the plan of care. Total Time Total Time Spent Total Time Spent (In Minutes): 55 Discharge Plan Discharge Items Patient Disposition: Transfer Acute [facility] Reason For Visit: AFIB RVR Discharge Diagnosis: Multiorgan failure Lymphoma Condition on Discharge: Fair Activity: Resume your previous activity Non-emergency contact: Primary Care Provider Call non-emergency contact if: you have any medication questions and your symp toms worsen Follow-up/Referrals: Laurel Caraballo DO [Primary Care Provider] - Diet: Nothing by Mouth Addtl Attending Provider Instructions: You are being transferred to [facility]. Your current inpatient medications are copied and pasted below and your prior to arrival medications are continued as it is in the discharge med rec for the sake of comparison at [facility]. Current Inpatient Medications Acetaminophen (Acetaminophen 325 Mg Tab) 650 mg PO Q4H PRN PRN Reason: Pain or Fever Stop: 05/05/25 18:53 Allopurinol (Allopurinol 300 Mg Tab) 300 mg PO DAILY LUCILA Stop: 05/06/25 08:59 Apixaban (Apixaban 5 Mg Tablet) 5 mg PO BID LUCILA Stop: 05/05/25 20:59 Last Admin: 04/05/25 20:29 Dose: 5 mg Atorvastatin Calcium (Atorvastatin 40 Mg Tab) 40 mg PO DAILY LUCILA Stop: 05/06/25 08:59 Clonazepam (Clonazepam 0.5 Mg Tab) 0.5 mg PO QAM LUCILA Stop: 05/06/25 08:59 Clonazepam (Clonazepam 0.5 Mg Tab) 1 mg PO QPM LUCILA Stop: 05/05/25 20:59 Last Admin: 04/05/25 20:37 Dose: 1 mg Dextrose (Dextrose 50% 50 Ml Syringe) 25 - 50 ml IV UD PRN; Protocol PRN Reason: Hypoglycemia Protocol Stop: 05/05/25 18:53 Dicyclomine HCl (Dicyclomine Hcl 10 Mg Cap) 10 mg PO QID PRN PRN Reason: Abdominal Pain Stop: 05/05/25 18:53 Glucagon (Glucagon For Inj 1 Mg Vial) 1 mg SQ UD PRN; Protocol PRN Reason: Hypoglycemia Protocol Stop: 05/05/25 18:53 Glucose (Glucose 40% Gel 15 Gm Tube) 15 - 30 gm PO UD PRN; Protocol PRN Reason: Hypoglycemia Protocol Stop: 05/05/25 18:53 Glucose (Glucose 10 Tab/Tube) 4 - 8 tab PO UD PRN; Protocol PRN Reason: Hypoglycemia Protocol Stop: 05/05/25 18:53 Amiodarone HCl/Dextrose (Nexterone / D5w) 360 mg in 200 mls @ 16.667 mls/hr IV .Q12H [facility] Stop: 05/05/25 22:40 Last Infusion: 04/06/25 07:11 Dose: 0 mg/min, 0 mls/hr Doxycycline Hyclate 100 mg/ (Dextrose) 100 mls @ 50 mls/hr IV Q12H [facility] Stop: 04/11/25 04:59 Last Admin: 04/06/25 07:42 Dose: 50 mls/hr Ampicillin Sodium/Sulbactam Sodium (Unasyn) 3,000 mg in 100 mls @ 200 mls/hr IV Q12H [facility]; Protocol Stop: 04/10/25 20:59 Last Infusion: 04/05/25 23:22 Dose: Infused Phenylephrine HCl (Phenylephrine/Nss) 25 mg in 250 mls @ 38.186 mls/hr IV .Q6H33M [facility]ILA; Protocol Stop: 05/06/25 02:59 Last Titration: 04/06/25 07:11 Dose: 0.9 mcg/kg/min, 38.2 mls/hr Acetylcysteine 3,450 mg/ (Dextrose) 517.25 mls @ 129.313 mls/hr IV ONE ONE; Protocol Stop: 04/06/25 12:29 Acetylcysteine 6,890 mg/ (Dextrose) 1,034.45 mls @ 64.653 mls/hr IV ONE ONE; Protocol Stop: 04/07/25 04:29 Insulin Aspart (Insulin Aspart Per Unit Charge) 0 units SC ACHS L[facility] Stop: 05/05/25 20:59 Last Admin: 04/05/25 20:37 Dose: 3 units Magnesium Oxide (Magnesium Oxide 400 Mg Tab) 400 mg PO QAM [facility] Stop: 05/06/25 08:59 Metoprolol Tartrate (Metoprolol Tartrate 25 Mg Tab) 12.5 mg PO QID [facility] Stop: 05/05/25 16:59 Last Admin: 04/05/25 20:30 Dose: Not Given Miscellaneous (Carbohydrates For Hypoglycemia ) 15 - 30 gm PO UD PRN PRN Reason: Hypoglycemia Protocol Stop: 05/05/25 18:53 Miscellaneous (Icu Protocol For Hyperglycemia) 1 each N/A ACHS [facility] Stop: 04/08/25 07:29 Ondansetron HCl (Ondansetron Inj 2 Mg/Ml 2 Ml Vial) 4 mg IV Q6H PRN PRN Reason: Nausea Stop: 05/05/25 18:53 Last Admin: 04/06/25 05:49 Dose: 4 mg Pantoprazole Sodium (Pantoprazole 40 Mg Tab) 40 mg PO DAILY [facility] Stop: 05/06/25 08:59 Polyethylene Glycol (Polyethylene (Miralax) 17 Gm Pack) 17 gm PO DAILY PRN PRN Reason: Constipation Stop: 05/05/25 18:53 Pending Studies at Discharge: Yes Stand-Alone Forms: My [facility] Skilled Items Patient informed of condition?: Yes DNR: No Discharge Level of Care: Other Communicable Disease: No Discharge Prognosis: Deteriorating Lines: Peripheral IV Urinary Catheter: No Medications and DC Order Prescriptions: Continued metoprolol succinate 50 mg tablet extended release 24 hr 150 mg PO DAILY Eliquis 5 mg tablet 5 mg PO BID atorvastatin 40 mg tablet 40 mg PO DAILY metformin 500 mg tablet extended release 24 hr 500 mg PO BID dicyclomine 10 mg capsule 10 mg PO QID PRN (Reason: Abdominal Pain) magnesium chloride 64 mg Tablet,Delayed Release (Dr/Ec) 128 mg PO DAILY Ozempic 1 mg/dose (4 mg/3 mL) pen injector 1 mg SUBCUT WK allopurinol 300 mg tablet 300 mg PO DAILY clonazepam 0.5 mg tablet 0.5 mg PO UD Rx Instructions: 1 tablet in AM, 2 tablets in evening omeprazole 20 mg capsule,delayed release(DR/EC) 40 mg PO DAILY calcium carbonate-vitamin D3 [Calcium 600 + D(3)] 600 mg-10 mcg (400 unit) Tablet 1 tab PO BID Discharge Orders: Discharge Order (Routine); Ordered 04/06/25 Ordered By: Colette Mcallister Admission Data Admit Date/Time: 04/05/25 16:22 Attending Provider: Colette Mcallister Admit Provider: Mervin Vallejo Primary Care Provider: Laurel Caraballo Other Providers: Mervin Vallejo; Arun Mcmanus; Suhas Torres; Pat Quintanilla; Ward Garcia Other Interventions: Discharge Summary Assessment (RN) Last Done: 04/06/25 09:20
[2025-04-06] MEDS: DEXTROSE 5% IV ONE (08:53)
[2025-04-06] MEDS: ACETYLCYSTEINE IV ONE (08:53)
[2025-04-06] MEDS ORDERED: clonazePAM 0.5 MG TAB PO SCH (09:00)
[2025-04-06] MEDS ORDERED: cefTRIAXone SODIUM 2,000 MG/50 ML BAG IV SCH (09:00)
[2025-04-06] MEDS ORDERED: MAGNESIUM OXIDE 400 MG TAB PO SCH (09:00)
[2025-04-06] MEDS ORDERED: ATORVASTATIN 40 MG TAB PO SCH (09:00)
[2025-04-06 09:20] VITALS: BP 99/56; PULSE 81
--- NOTE | 2025-04-06 10:42 | Gastrointestinal Consultation ---
Date of Consultation April 06, 2025 Assessment & Plan (1) Elevated liver function tests: (2) Abnormal abdominal CT scan: (3) Hyperammonemia: (4) Atrial fibrillation with rapid ventricular response: (5) Mediastinal mass: (6) SEB (acute kidney injury): Plan IMPRESSION: 74-year-old numerous comorbidities including recently diagnosed mediastinal mass noted to have significant increase in liver function tests. This dramatic increase in liver function test to this extent in the background of elevated lactate, generalized hypoperfusion/sepsis/hypotension is nearly pathognomonic for shock liver. While the CT scan shows some dilation of the common bile duct, relatively unremarkable cholestatic labs argues against biliary obstruction -- The mainstay of treatment shock liver is maintenance of reperfusion with pressor support as needed, hydration. Labs typically will correct rapidly reperfusion -- Patient of liver function test is inconsistent with other typical hepatitides including viral hepatitis, drug-induced liver injury or cholecystitis. This was also not suggested by imaging -- Supportive care as above is recommended. Trend liver function tests -- Suspect hyperlipasemia is related to renal failure rather than underlying pancreatic inflammation -- Lactulose for hyperammonemia Thank you for the courtesy of the consultation. Please do not hesitate to contact the GI service for further questions or clarification. 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 Her hospital course is complicated by hypotension, respiratory insufficiency/hypoxic respiratory failure requiring pressors. The GI service is consulted for Intermatic spike in liver function tests including an AST which is gone from [id number] and an ALT which is gone from 62,146. Alkaline phosphatase is elevated at 130, total bilirubin is 1.2. The patient has elevated troponin, elevated lactate dehydrogenase of 9773. Ammonia is 89. Lipase is 167. Lactate 5.2. The patient had a abdominal ultrasound 04/06/2025 which showed hepatic steatosis with mild coarse echotexture, dilated common bile duct in the region of the head of the pancreas, trace fluid in the gallbladder without wall edema, gallstones or sludge. Ultrasound duplex of the portal and hepatic veins show no thrombosis. Allergies Allergy/AdvReac Type Severity Reaction Status Date / Time No Known Allergies Allergy Unverified 02/10/10 13:10 Home Medications Medication Instructions Recorded Confirmed Type allopurinol 300 mg tablet 300 mg PO DAILY 03/09/25 04/05/25 History calcium 600 mg (as 1 tab PO BID 03/09/25 04/05/25 History carbonate)-vitamin D3 10 mcg (400 unit) tablet (Calcium 600 + D(3)) clonazepam 0.5 mg tablet 0.5 mg PO UD 03/09/25 04/05/25 History omeprazole 20 mg capsule,delayed 40 mg PO DAILY 03/09/25 04/05/25 History release apixaban 5 mg tablet (Eliquis) 5 mg PO BID 04/05/25 04/05/25 History atorvastatin 40 mg tablet 40 mg PO DAILY 04/05/25 04/05/25 History dicyclomine 10 mg capsule 10 mg PO QID PRN Abdominal Pain 04/05/25 04/05/25 History magnesium chloride 64 mg 128 mg PO DAILY 04/05/25 04/05/25 History (magnesium chloride) tablet,delayed release metformin 500 mg tablet,extended 500 mg PO BID 04/05/25 04/05/25 History release 24 hr metoprolol succinate 50 mg 150 mg PO DAILY 04/05/25 04/05/25 History tablet,extended release 24 hr semaglutide 1 mg/dose (4 mg/3 mL) 1 mg subcut WK 04/05/25 04/05/25 History subcutaneous pen injector (Ozempic) Patient History Medical History Mediastinal mass Family History Father Cancer Social History Smoking Status: Never smoker Second Hand Exposure: No; Do You Dip or Chew Tobacco: No; Hx Alcohol Use: No Hx Substance Use: No Preferred Language: [place] Communication Ability: Effective Brine Process Operator Required: No Beliefs That Will Affect Care: None Current Living Situation: Family Current Living Situation Comment: lives w/ son Feels Safe at Home: Yes Assistive Devices: Glasses and Walker Review of Systems Constitutional: + fatigue, + malaise, + weakness, + anor exia and + weight loss Eyes: no problem reported Ear, Nose, Mouth, Throat: + neck lump Respiratory: + dyspnea on exertion Cardiovascular: + palpitations and + lightheadedness Musculoskeletal: + joint pain and + muscle weakness Neurologic: + memory loss Results & Data Vital Signs (Past 12 Hours) Vital Signs Temp Pulse Pulse Resp BP BP BP 04/06/25 09:20 37.4 C 81 27 H 75/46 L 99/56 L 04/06/25 06:30 61 107/40 L 04/06/25 05:30 37.4 C 80 27 H 04/06/25 05:30 105/41 L 04/06/25 05:15 37.4 C 80 29 H 04/06/25 05:15 101/34 L 04/06/25 05:00 37.4 C 80 25 H 04/06/25 05:00 94/31 L 04/06/25 04:46 99/37 L 04/06/25 04:45 37.5 C 82 28 H 04/06/25 04:30 37.4 C 81 28 H 04/06/25 04:30 97/41 L 04/06/25 04:24 36.1 C L 04/06/25 04:15 37.2 C 80 27 H 04/06/25 04:15 92/41 L 04/06/25 04:00 36.7 C 81 27 H 04/06/25 04:00 92/46 L 04/06/25 03:45 81 24 99/50 L 04/06/25 03:33 81 27 H 04/06/25 03:30 81 34 H 86/45 L 04/06/25 03:30 04/06/25 03:14 36.1 C L 81 04/06/25 03:14 81 04/06/25 02:44 75/46 L 04/06/25 02:30 79 16 04/06/25 02:20 79/37 L 04/06/25 02:01 72/42 L 04/06/25 00:05 36.4 C L 84 18 83/52 L Pulse Ox O2 Del Method O2 Flow Rate FiO2 04/06/25 09:20 98 04/06/25 06:30 04/06/25 05:30 98 BiPAP 30 04/06/25 05:30 04/06/25 05:15 98 BiPAP 30 04/06/25 05:15 04/06/25 05:00 99 BiPAP 30 04/06/25 05:00 04/06/25 04:46 04/06/25 04:45 96 BiPAP 30 04/06/25 04:30 98 BiPAP 30 04/06/25 04:30 04/06/25 04:24 04/06/25 04:15 98 BiPAP 30 04/06/25 04:15 04/06/25 04:00 99 BiPAP 30 04/06/25 04:00 04/06/25 03:45 97 BiPAP 30 04/06/25 03:33 97 30 04/06/25 03:30 97 Nasal Cannula 6 04/06/25 03:30 Nasal Cannula, BiPAP, CPAP 2 04/06/25 03:14 04/06/25 03:14 04/06/25 02:44 04/06/25 02:30 92 Nasal Cannula 3 04/06/25 02:20 04/06/25 02:01 04/06/25 00:05 92 Nasal Cannula 2 PG Care Time/CCT Total # of Minutes Spent Total Time Spent with Patient: Total time spent is greater than 50% in coordination of care (as documented) at patient's floor/unit and/or counseling patient: Coding Diagnoses Elevated liver function tests R79.[address] scan R93.5 Hyperammonemia E72.20 Atrial fibrillation with rapid ventricular response I48.91 Mediastinal mass J98.59 SEB (acute kidney injury) N17.9
--- NOTE | 2025-04-06 11:55 | Electrocardiogram Report ---
Test Reason : Blood Pressure : */* mmHG Vent. Rate : 81 BPM Atrial Rate : 81 BPM P-R Int : 184 ms QRS Dur : 152 ms QT Int : 444 ms P-R-T Axes : 56 -27 138 degrees QTcB Int : 515 ms Normal sinus rhythm Possible Left atrial enlargement Left bundle branch block Abnormal ECG When compared with ECG of 05-Apr-2025 13:41, Sinus rhythm has replaced Atrial fibrillation Vent. rate has decreased by 52 bpm T wave amplitude has decreased in Anterior leads T wave inversion no longer evident in Lateral leads Confirmed by Alfa Ramires ([id number]) on 04/06/2025 11:54:27 AM Referred By: REFERRED SELF Confirmed By: Alfa Ramires
--- NOTE | 2025-04-09 15:33 | Coding Query ---
SEPSIS To promote full compliance with coding requirements relating to patient care, physician participation is requested in all cases of orchardist uncertainty. Please assist us with the question(s) below: In responding to this query, please exercise your independent professional judgement. The fact that a question is asked does not imply that any particular answer is desired or expected. We appreciate your clarification on this issue. The medical record reflects the following clinical findings: 04/05 hospitalist progress note documented severe sepsis. Underlying Lymphoma, HLH & suspect aspiration pneumonia. Please check below, if applicable, the diagnosis that was treated during this inpatient stay. Thank you ! ERIC Mota [facility] ____ ( )Bacteremia (Nonspecific laboratory finding of bacteria in the blood) Specify Organism ( ) Present on Admission ( ) Not present on admission ( ) Unable to clinically determine ( ) Septicemia (Systemic disease associated with the presence of pathogenic microorganisms in the blood): Specify Organism ( ) Present on Admission ( ) Not present on admission ( ) Unable to clinically determine ( ) Sepsis Specify Organism Specify Associated Condition/Diagnosis ( ) Present on Admission ( ) Not present on admission ( ) Unable to clinically determine ( ) Severe Sepsis (Sepsis associated with acute organ dysfunction) Specify Organism Specify Associated Condition/Diagnosis ( ) Present on Admission ( ) Not present on admission ( ) Unable to clinically determine (x ) Septic Shock (Severe sepsis with acute circulatory failure, unexplained by other causes) ( ) Present on Admission ( ) Not present on admission (x ) Unable to clinically determine ( ) Other, patient has: MTDD
[2025-04-09 17:13] LABS: Hepatitis C Vira RNA (Log) PCR <1.18 NOT DETECTED Log IU/mL (NOT DETECTED)
[2025-04-09 22:27] LABS: Hepatitis A Antibody IgM NON-REACTIVE (NON-REACTIVE); Hepatitis B Core Antibody IgM NON-REACTIVE (NON-REACTIVE)
== END 2025-04-06 11:20 | disposition short-term general hospital (02) | DRG 840 ==
LOC: ED 13:29 → SUATTDRO 16:22 → 2S 16:22 → 1E 04-06 02:57